=== PATIENT | female | born 1960 | race Caucasian/White ===

== ENCOUNTER 2025-01-07 15:18 | Emergency (ER) | payer OTHER, SELFPAY ==
[2025-01-07 15:25] VITALS: BP 157/95
[2025-01-07 15:41] LABS: % Basophils 0.6 % (0-2); % Eosinophils 1.5 % (0-6); % Immature Granulocytes 0.3 % (0-0.5); % Lymphocytes 21.9 % (20.5-51.1); % Monocytes 6.8 % (1.7-9.3); % Neutrophils 68.9 % (42.2-75.2); Absolute Basophils 0.1 10^3/uL (0-0.2); Absolute Eosinophils 0.1 10^3/uL (0-0.7); Absolute Lymphocytes 1.9 10^3/uL (1.2-3.4); Absolute Monocytes 0.6 10^3/uL (0.1-0.6); Absolute Neutrophils 6.1 10^3/uL (1.4-6.5); Hematocrit 45.7 % (37.0-47.0); Hemoglobin 15.9 g/dL (12.0-16.0); Mean Corp Hgb Conc. 34.8 g/dL (33.0-37.0); Mean Corpuscular Hgb 30.6 pg (27.0-31.0); Mean Corpuscular Volume 88.1 fL (81.0-99.0); Mean Platelet Volume 9.2 fL (7.4-10.4); Nucleated Red Blood Cells % 0 %; Platelet Count 270 10^3/uL (130-400); Red Blood Cell Count 5.19 10^6/uL (4.20-5.40); Red Cell Dist. Width 13.3 % (11.5-14.5); White Blood Cell Count 8.9 10^3/uL (4.8-10.8)
[2025-01-07 15:51] LABS: ALT (SGPT) 19 U/L (0-35); AST (SGOT) 22 U/L (14-36); Albumin 4.8 g/dl (3.5-5.0); Alkaline Phosphatase 75 U/L (38-126); Blood Urea Nitrogen 16 mg/dl (7-17); Carbon Dioxide 24 mmol/L (22-30); Chloride 109 mmol/L (98-107); Glucose 150 mg/dl (70-99); Potassium 4.4 mmol/L (3.5-5.1); Sodium 141 mmol/L (135-145); Total Bilirubin 0.6 mg/dl (0.2-1.3); Total Protein 7.7 g/dl (6.3-8.2); eGFR > 60.00
== END 2025-01-07 19:20 | disposition left against medical advice (07) ==
LOC: EMR 15:18
PROVIDERS: EMERGENCY PHYSICIAN Emergency Medicine
DX: R10.9 Unspecified abdominal pain (principal); R11.0 Nausea; Z87.442 Personal history of urinary calculi; Z53.21 Procedure and treatment not carried out due to patient leaving prior to being seen by health care provider
CPT/HCPCS: 80053; 85025

== ENCOUNTER 2025-01-09 00:24 | Emergency (ER) | payer OTHER, SELFPAY ==
[2025-01-09 00:26] VITALS: BP 133/74
--- NOTE | 2025-01-09 00:57 | ED.GENMED ---
History of Present Illness
General
Chief Complaint: Flank Pain
Source: patient
Time Seen by Provider: 01/09/25 00:38
History of Present Illness
History of Present Illness:
Note:
CHIEF COMPLAINT(S)
Right flank pain.
HISTORY OF PRESENT ILLNESS
The patient is a 64-year-old female with a past medical history significant for brain meningioma and seizures, presenting with right flank pain. The pain began on Monday and has been constant since onset. The patient denies fever, urinary burning,
and currently does not note any nausea but reports a previous episode of vomiting. There is a decrease in urinary output despite sufficient fluid intake. The patient has a history of kidney stones and states that the current pain is reminiscent of
past episodes.
ADDITIONAL HISTORY OBTAINED FROM SOURCES OTHER THAN THE PATIENT
According to the patient, she had surgeries and radiation treatment for a brain meningioma, which was discovered following a seizure during a knee replacement recovery.
PAST MEDICAL HISTORY
- Brain meningioma with two major surgeries and radiation therapy.
- History of seizures.
- Previous kidney stones.
PHYSICAL EXAM
- Heart: Regular rate and rhythm.
- Abdomen: Right CVA tenderness present.
- Extremities: No edema.
- Neurological: Cranial nerves intact, no focal motor deficits.
PLAN
- Initiate IV access and administer fluids.
- Provide narcotic pain medication.
- Order a CT scan to assess for kidney stones.
- Monitor pain response to medication and adjust as necessary.
DIFFERENTIAL DIAGNOSIS
The Differential Diagnosis includes, in no particular order and is not limited to:
- Nephrolithiasis (kidney stones)
- Urinary tract infection
- Pyelonephritis
- Renal colic
- Hydronephrosis
- Musculoskeletal pain
- Abdominal aortic aneurysm
- Gastroenteritis
- Biliary colic
- Appendicitis
CARE-UPDATE
01/09/25 - 02:39
Reassessment indicates significant improvement in pain levels. Continue current pain management strategy unless otherwise directed. Further evaluation needed to determine if additional interventions are necessary.
CARE-UPDATE
01/09/25 - 02:48
Reassessment reveals a 7mm and two 4mm distal ureter stones.
Disposition:
SUMMARY OF ENCOUNTER
The patient presented with right flank pain reminiscent of previous kidney stone episodes. Management in the emergency department included pain control and hydration. A CT scan was performed revealing distal ureter stones. Consideration for
nephrolithiasis was made, given her known history. The patient expressed a preference for outpatient management, and it was deemed reasonable due to controlled pain and stable condition.
DISPOSITION
The patient was discharged with instructions to manage the condition on an outpatient basis.
EMERGENCY TREATMENTS ADMINISTERED
Pain control with unspecified narcotic analgesics and intravenous fluids were administered.
PLAN
Continue pain management, start tamsulosin (Flomax) for stone expulsion, monitor symptom progression, and follow up with outpatient urology.
MEDICATION RECONCILIATION
Administered pain control medication in the ED. Prescribed tamsulosin (Flomax) for outpatient management.
MEDICAL DECISION MAKING
1. Number & Complexity of Problems: Chronic conditions affecting care include brain meningioma, seizures, and previously managed kidney stones. Differential diagnosis considered included nephrolithiasis.
2. Data Reviewed: CT scan confirmed stones. Urinalysis considered contaminated, but a urine culture was pending.
3. Risk: Consideration of admission was made due to the presence of kidney stones, but outpatient management was appropriate given controlled symptoms, stable vitals, and follow-up reliability.
PATHOLOGIES TO CONSIDER
- Nephrolithiasis (kidney stones)
- Urinary tract infection
- Pyelonephritis
- Renal colic
- Hydronephrosis
Past History
Past History
ED Past Medical History: GERD, Hypercholesterolemia and Other (Crohn's)
ED Past Surgical History: Cholecystectomy and Gynecological (Hysterectomy)
Social History
Tobacco: Non-smoker
Alcohol: Occasional
Personal:
Living: with family
Phy Exam
Physical Exam
Physical Exam:
.
Course
Orders/Labs/Results
Orders:
Orders
01/09/25 00:58
CT Abd/pel Without Iv Or Oral Urgent
Comment:
Reason For Exam: R flank pain
01/09/25 01:10
0.9% Sodium Chloride 1000 ml [Nss] 1,000 ml IV BOLUS
HYDROmorphone [Dilaudid] 0.5 mg IV NOW STA
Ondansetron Injectable [Zofran] 4 mg IV NOW STA
01/09/25 01:21
Urinalysis Reflex To Culture Urgent
Date Specimen was Collected: 01/09/25
Time Specimen was Collected: 01:04
Urine Microscopic Reflex Cult Urgent
Urine Culture Urgent
PREMA Source: U
Specimen Description:
Date Specimen was Collected: 01/09/25
Time Specimen was Collected: 01:04
01/09/25 02:13
Ketorolac [Toradol] 15 mg IV NOW STA
01/09/25 02:38
Hydrocodone 5/APAP 325 [[place] 5/325] 2 tablet PO NOW STA
Abnormal Lab Results
01/09/25
01:21
Ur Occult Blood Reflex 4+ A
(Negative)
Leukocyte Esterase Rfl 3+ A
(Negative)
Urine RBC >100 A /HPF
(0-2)
Urine Bacteria (Reflex) Many A
(Negative)
Urine Albumin (Reflex) 3+ A
(Neg - Trace)
Vital Signs
Initial and Last Documented VS:
Initial Vital Signs
Temp Pulse Resp BP Pulse Ox
97.9 F 59 20 133/74 97
01/09/25 00:26 01/09/25 00:26 01/09/25 00:26 01/09/25 00:26 01/09/25 00:26
Last Documented Vital Signs
Temp Pulse Resp BP Pulse Ox
97.9 F 63 16 112/56 95
01/09/25 00:26 01/09/25 02:57 01/09/25 02:57 01/09/25 02:57 01/09/25 02:57
*Pulse Oximetry
SaO2: 97
Oxygen Mode of Delivery: Room air
Patient hypoxic: no
*Critical Care Note
Total Time (30-74mins, 75-104mins- exclusive of procedures): Not Applicable
ED Attending Note
-
Portions of this chart may have been created with voice recognition software.� Occasional wrong word or��sound alike� substitutions may have occurred due to the inherent limitations of voice recognition software.
Discharge Plan
Departure
Patient Disposition: Home (Routine Discharge)
Date of Disposition: 01/09/25
Time of Disposition: 02:42
Patient with high blood pressure during this ER visit?: No
Discharge Problem:
Kidney stone
Instructions: Kidney Stones (DC), How to Strain Your Urine, Narcotic Pain Medication
Prescriptions:
New
hydrocodone-acetaminophen 5-325 mg tablet
2 tab PO Q6H PRN (Reason: Pain) Qty: 14 0RF
tamsulosin [Flomax] 0.4 mg capsule
0.4 mg PO HS Qty: 20 0RF
cefuroxime axetil 500 mg tablet
500 mg PO BID 7 Days Qty: 14 0RF
No Action
atorvastatin 40 MG tablet
40 mg PO QPM
ranitidine HCl 300 MG tablet
300 mg PO HS
alosetron [Lotronex] 1 MG tablet
1 mg PO BID
hyoscyamine sulfate [Levbid] 0.375 MG tablet extended release 12 hr
0.375 mg PO BID
trazodone 100 MG tablet
100 mg PO HS
amitriptyline 10 MG tablet
30 mg PO HS
hyoscyamine sulfate [Levsin] 0.125 MG tablet
0.125 mg PO Q4HPRN PRN (Reason: Chron's flair)
lamotrigine 100 MG tablet
200 mg PO Daily
omeprazole-sodium bicarbonate 1 EACH capsule
1 tab PO BID
fenofibrate 54 MG tablet
67 mg PO DAILY AT 0700
tamsulosin 0.4 MG capsule
0.4 mg PO DAILY Qty: 5 0RF
ondansetron 4 MG tablet,disintegrating
4 mg PO Q8HPRN PRN (Reason: Nausea/Vomiting) Qty: 10 0RF
oxycodone-acetaminophen 5 MG/325 MG tablet
1 tab PO Q4HPRN PRN (Reason: Pain) Qty: 15 0RF
prochlorperazine maleate 10 MG tablet
10 mg PO Q6HPRN PRN (Reason: headache) Qty: 12 0RF
lamotrigine [Lamictal] 150 MG tablet
150 mg PO BID Qty: 60 0RF
Referrals:
Van Lya Jr., MD [Active, Urology]
UNKNOWN - PT DOES,NOT KNOW [Unknown Provider]
Activity Restrictions/Additional Instructions:
Please see urology in the next 3 to 5 days for follow-up and reevaluation. Return immediately for intractable vomiting, fevers, worsening pain or any other concerns.
Interventions
Interventions:
*Risk Screen - Suicide Last Done: 01/09/25 00:26
*General Assessment Last Done: 01/09/25 00:26
*Neglect/Abuse Screening Last Done: 01/09/25 00:26
*ED- Fall Risk Assessment Last Done: 01/09/25 00:26
*ED COVID-19 Vaccine History Last Done: 01/09/25 00:26
SR-Cyiadz-Djhlximefp Assessment Last Done: 01/09/25 01:29
ED-Female Genitourinary Assessment Last Done: 01/09/25 01:29
Discharge Date and Time
Print Language: WELSH
[2025-01-09] MEDS: ZOFRAN 4 MG IV (01:20)
[2025-01-09] MEDS: NSS 1000 IV (01:20)
[2025-01-09] MEDS: DILAUDID 0.5 MG IV (01:21)
[2025-01-09 01:31] LABS: Urine Albumin 3+ (Neg - Trace); Urine Bilirubin Negative (Negative); Urine Character Cloudy (Clear); Urine Glucose Negative (Negative); Urine Ketone Negative (Negative); Urine Leukocyte 3+ (Negative); Urine Nitrite Negative (Negative); Urine Occult Blood 4+ (Negative); Urine Urobilinogen Negative (Neg - 1+)
[2025-01-09 01:32] LABS: Urine Color Amber
[2025-01-09 01:46] LABS: Urine Amorphous Seen; Urine Mucus Many; Urine Squamous Cell >30 /LPF (Few)
[2025-01-09 01:47] LABS: Urine Bacteria Many (Negative); Urine Calcium Oxalate Crystals Seen; Urine Red Blood Cell >100 /HPF (0-2)
[2025-01-09] MEDS: TORADOL 15 MG IV (02:16)
[2025-01-09] MEDS: NORCO 5/325 2 TABLET PO (02:51)
[2025-01-09 02:57] VITALS: BP 112/56
== END 2025-01-09 03:13 | disposition home or self-care (01) ==
LOC: EMR 00:24
PROVIDERS: EMERGENCY PHYSICIAN Emergency Medicine; FAMILY PHYSICIAN Family Medicine
DX: R10.9 Unspecified abdominal pain (principal); E78.00 Pure hypercholesterolemia, unspecified; K50.90 Crohn's disease, unspecified, without complications; Z87.442 Personal history of urinary calculi; Z90.49 Acquired absence of other specified parts of digestive tract; Z90.710 Acquired absence of both cervix and uterus; Z96.659 Presence of unspecified artificial knee joint
CPT/HCPCS: 99284; 96374; 96375; 96361; 74176; 81003; 81015; 87086

== ENCOUNTER 2025-01-11 17:39 | Inpatient (IN) | payer OTHER, SELFPAY ==
[2025-01-11 13:35] VITALS: BP 147/79
--- NOTE | 2025-01-11 15:15 | ED.GENMED ---
History of Present Illness
General
Chief Complaint: Flank Pain
Source: patient
Exam Limitations: none
Time Seen by Provider: 01/11/25 15:10
Nursing documentation reviewed up to this point in time: agreed with
History of Present Illness
History of Present Illness:
64-year-old female hx kidney stones, stents x 2 and lithotripsy, here 2 days ago, with 6 mm obstructing calculus distal right ureter. Here today with unrelenting pain with home Oxycodone and Flomax. Good relief here with Dilaudid, no infection of
urine and labs unremarkable. She is not comfortable going home. She couldn't get Uro appt until 01/16. Denies fever or chills.
Past History
Past History
ED Past Medical History: GERD, Hypercholesterolemia and Other (Crohn's)
ED Past Surgical History: Cholecystectomy and Gynecological (Hysterectomy)
Social History
Tobacco: Non-smoker
Alcohol: Occasional
Personal:
Living: with family
Review of Systems
Review of Systems
Allergies reviewed?: Yes
All Other Systems: ROS reviewed and negative except as documented in HPI and ROS
Constitutional: Denies fever or chills
Respiratory: Denies trouble breathing
Cardiac: Denies chest pain
ABD/GI: Reports nausea and vomiting; Denies abdominal pain
: Reports flank pain (Right); Denies dysuria, frequency or difficulty voiding
Musculoskeletal: Reports no symptoms
Skin: Reports no symptoms
Neurological: Reports no symptoms
Phy Exam
Physical Exam
Physical Exam:
GENERAL: No acute distress. A&Ox3.
CONSTITUTIONAL: Afebrile.
EYES: clear, conjunctivae normal
ENMT: moist mucus membranes, Pharynx nl
RESPIRATORY: Regular respirations, nonlabored, lungs clear.
CARDIOVASCULAR: Regular rate and rhythm, no murmurs, no rubs.
GI: Soft, nontender, normal BS. Mild right flank tenderness to percussion
MUSCULOSKELETAL: Moves with ease. Well perfused.
SKIN: Warm, dry, pink
PSYCH: Normal mood and affect. Well kept, interactive and appropriate
NEUROLOGIC: Awake, alert and oriented. No focal neurological deficits
Course
Orders/Labs/Results
Orders:
Orders
01/11/25 Dinner
Regular
At Your Request: Full Participation
Does patient need a safe tray?: No
01/11/25 15:12
0.9% Sodium Chloride 1000 ml [Nss] 1,000 ml IV BOLUS
HYDROmorphone [Dilaudid] 1 mg IV NOW STA
01/11/25 15:25
Complete Blood Count/With Diff Urgent
Comprehensive Metabolic Panel Urgent
Urinalysis Reflex To Culture Urgent
Date Specimen was Collected: 01/11/25
Time Specimen was Collected: 15:15
Urine Microscopic Reflex Cult Urgent
Urine Culture Urgent
PREMA Source: U
Specimen Description:
Date Specimen was Collected: 01/11/25
Time Specimen was Collected: 15:15
01/11/25 16:37
UROLOGY CONSULT Urgent
Consulting Provider: German Lai
Was physician already notified: Yes
Comment: R ureteral obstructing stone
01/11/25 17:08
Admit/Transfer Patient As Directed
Co-Sign Provider:
Level of Care: Inpatient admission
Assign to:: Medical/Surgical
Physician / Group: Sarahi Miguel
Diagnosis: obstructing calculus of distal right ureter
Reason for Hospitalization: obstructing calculus of distal right ureter
Expected length of stay greater than two midnights?: Yes
ELOS- Estimated Length of Stay in days: 2
I certify the patient meets the requirements for IP care: Yes
PRN Pain Medication Management As Directed
May give lesser potent ordered pain med per pt: Yes
preference::
Protocol:: Medication orders for pain may be administered in a
manner that supports deferring to patient preference
when the pt is:
- Requesting an ordered lesser potent pain medication.
Least to most potent pain medications are defined
as: acetaminophen < NSAID < tramadol < opioids
(morphine, oxycodone, hydromorphone).
- Requesting a lesser dose of the same medication IF
ORDERED.
- Requesting a less intrusive route of administration
if both routes are prescribed by the provider (PO <
IV).
01/11/25 17:09
Code Status As Directed
Resuscitation Status: Do not resuscitate
Reached after discussion with pt or family/Healthcare POA: Yes
Decision communicated with: patient
01/11/25 17:10
DNR Bracelet Application ONCE
01/11/25 17:52
0.9% Sodium Chloride 1000 ml [Nss] 1,000 ml IV 125 mls/hr
Acetaminophen [Tylenol] 650 mg PO Q4HPRN PRN
HYDROmorphone [Dilaudid] 0.5 mg IV Q2HPRN PRN
Ondansetron Injectable [Zofran] 4 mg IV Q6HPRN PRN
Oxycodone/Acetaminophen [Percocet 5/325] 1 tablet PO Q4HPRN PRN
Oxycodone/Acetaminophen [Percocet 5/325] 2 tablet PO Q4HPRN PRN
01/11/25 17:52
Activity As Directed
Activity Level: As Tolerated
Intake/ Output As Directed
Frequency: Per unit guidelines
Okay to Shower As Directed
Pneumatic Compression Sleeves As Directed
Type: Thigh high
Strain Urine As Directed
Vital Signs As Directed
Frequency: Per unit guidelines
Weight As Directed
Frequency: Once
Comment: on admission
DX Deep Vein Thrombosis Video Routine
01/11/25 20:00
Lamotrigine [Lamictal] 150 mg PO BID
01/11/25 22:00
Tamsulosin [Flomax] 0.4 mg PO HS
Trazodone [Desyrel] 100 mg PO HS
01/12/25 Breakfast
NPO
Allow oral meds: Yes
Allow clear liquids: 4hrs prior to procedure
Comment: may have unrestricted clear liquid up to 4 hrs prior to scheduled procedure
Basic Metabolic Panel IN AM
Complete Blood Count/No Diff IN AM
01/12/25 08:00
Multivitamin [Theragran] 1 tablet PO DAILY
Propranolol Extended Release [Inderal LA] 80 mg PO DAILY
Abnormal Lab Results
01/11/25
15:25
MCH 31.2 H pg
(27.0-31.0)
Glucose 107 H mg/dl
(70-99)
Ur Occult Blood Reflex 4+ A
(Negative)
Leukocyte Esterase Rfl 1+ A
(Negative)
Urine RBC >100 A /HPF
(0-2)
Urine WBC (Reflex) 11-15 A /HPF
(0-5)
Urine Bacteria (Reflex) Few A
(Negative)
Urine Albumin (Reflex) 2+ A
(Neg - Trace)
01/11/25 15:25
01/11/25 15:25
Vital Signs
Initial and Last Documented VS:
Initial Vital Signs
Temp Pulse Resp BP Pulse Ox
97.6 F 52 16 147/79 96
01/11/25 13:35 01/11/25 13:35 01/11/25 13:35 01/11/25 13:35 01/11/25 13:35
Last Documented Vital Signs
Temp Pulse Resp BP Pulse Ox
97.8 F 54 16 141/78 98
01/11/25 17:52 01/11/25 17:52 01/11/25 17:52 01/11/25 17:52 01/11/25 17:52
MDM/Problems Addressed
Differential Diagnosis Includes:
UTI, pyelonephritis, infected kidney stone
MDM/Problems Addressed:
64-year-old female hx kidney stones, stents x 2 and lithotripsy, here 2 days ago, with 6 mm obstructing calculus distal right ureter. Here today with unrelenting pain with home Oxycodone and Flomax. Good relief here with Dilaudid, no infection of
urine and labs unremarkable. She is not comfortable going home. She couldn't get Uro appt until 01/16. Denies fever or chills.
2 days ago patient's CAT scan showed obstructing distal right ureteral calculus with maximum dimension of 6 mm. Moderate dilatation of the more proximal right ureter and pelvicalyceal system with right perinephric edema and enlargement of the right
kidney compared to the left. Also an additional 3 mm calculus in the right distal ureter 1.5 cm inferior to the larger more proximal calculus.
4:15 p.m.
CBC normal
CMP normal
U/A: No infection
Good pain relief with Dilaudid
Consulted urology Dr. Lai who agrees patient needs to be admitted, he will take her to the OR in the morning for stent and ureteroscopy.
Hospitalist notified of admission.
*Pulse Oximetry
SaO2: 96
Oxygen Mode of Delivery: Room air
Patient hypoxic: not evaluated
*Critical Care Note
Total Time (30-74mins, 75-104mins- exclusive of procedures): Not Applicable
ED Attending Note
-
Portions of this chart may have been created with voice recognition software.� Occasional wrong word or��sound alike� substitutions may have occurred due to the inherent limitations of voice recognition software.
Discharge Plan
Departure
Patient Disposition: Admit
Date of Disposition: 01/11/25
Time of Disposition: 16:34
Admit to: Med/Surg
Presentation/result/management discussed w/ accepting MD/DO: Hospitalist
Condition: Fair
Discharge Problem:
Calculus of distal right ureter
Interventions
Interventions:
*Risk Screen - Suicide Last Done: 01/11/25 13:35
*General Assessment Last Done: 01/11/25 15:25
*Neglect/Abuse Screening Last Done: 01/11/25 15:25
*ED- Fall Risk Assessment Last Done: 01/11/25 15:25
*ED COVID-19 Vaccine History Last Done: 01/11/25 15:25
*Nursing Disposition Last Done: 01/11/25 17:55
NM-Lmyuoo-Pbgncyugiv Assessment Last Done: 01/11/25 15:25
ED-Female Genitourinary Assessment Last Done: 01/11/25 15:33
Discharge Date and Time
Discharge Date/Time: 01/11/25 17:55
[2025-01-11] MEDS: DILAUDID 1 MG IV (15:29)
[2025-01-11] MEDS: NSS 1000 IV ×2 (15:29→18:14)
[2025-01-11 15:34] LABS: % Basophils 0.8 % (0-2); % Eosinophils 3.3 % (0-6); % Immature Granulocytes 0.3 % (0-0.5); % Lymphocytes 35.6 % (20.5-51.1); % Monocytes 7.4 % (1.7-9.3); % Neutrophils 52.6 % (42.2-75.2); Absolute Basophils 0.1 10^3/uL (0-0.2); Absolute Eosinophils 0.3 10^3/uL (0-0.7); Absolute Lymphocytes 2.7 10^3/uL (1.2-3.4); Absolute Monocytes 0.6 10^3/uL (0.1-0.6); Hematocrit 42.1 % (37.0-47.0); Hemoglobin 14.9 g/dL (12.0-16.0); Mean Corp Hgb Conc. 35.4 g/dL (33.0-37.0); Mean Corpuscular Hgb 31.2 pg (27.0-31.0); Mean Corpuscular Volume 88.3 fL (81.0-99.0); Mean Platelet Volume 9.5 fL (7.4-10.4); Nucleated Red Blood Cells % 0 %; Platelet Count 265 10^3/uL (130-400); Red Blood Cell Count 4.77 10^6/uL (4.20-5.40); Red Cell Dist. Width 13.4 % (11.5-14.5); Urine Albumin 2+ (Neg - Trace); Urine Bilirubin Negative (Negative); Urine Character Cloudy (Clear); Urine Color Yellow; Urine Glucose Negative (Negative); Urine Ketone Negative (Negative); Urine Leukocyte 1+ (Negative); Urine Nitrite Negative (Negative); Urine Occult Blood 4+ (Negative); Urine Urobilinogen Negative (Neg - 1+); White Blood Cell Count 7.7 10^3/uL (4.8-10.8)
[2025-01-11 15:42] LABS: Urine Red Blood Cell >100 /HPF (0-2); Urine Squamous Cell 0-2 /LPF (Few)
[2025-01-11 15:43] LABS: Urine Bacteria Few (Negative); Urine Calcium Oxalate Crystals Present
[2025-01-11 15:50] LABS: ALT (SGPT) 28 U/L (0-35); AST (SGOT) 24 U/L (14-36); Albumin 4.2 g/dl (3.5-5.0); Alkaline Phosphatase 84 U/L (38-126); Blood Urea Nitrogen 16 mg/dl (7-17); Calcium 9.9 mg/dl (8.4-10.2); Carbon Dioxide 24 mmol/L (22-30); Chloride 107 mmol/L (98-107); Glucose 107 mg/dl (70-99); Potassium 3.9 mmol/L (3.5-5.1); Sodium 139 mmol/L (135-145); Total Bilirubin 0.4 mg/dl (0.2-1.3); Total Protein 6.9 g/dl (6.3-8.2); eGFR > 60.00
--- NOTE | 2025-01-11 16:38 | HPS.HSE ---
Family Physician
-
Family Physician: Sha Ching
Chief Complaint
-
right flank and right back pain
History of Present Illness
Patient is a 64-year-old female with past medical history significant for migraine headaches, hypercholesterolemia, seizures, Crohn's disease, Hx kidney stones and Hx meningioma who presented to [facility] ED for evaluation of right flank and right back
pain. Patient reports onset of pain this past Monday01/06/2025 and was seen in ED on 01/09/[address] revealing distal ureter stones. Patient was discharged home from ED with instructions to manage, pain regimen, antibiotics and flomax.
Patient returned to ED today for continued pain and now nausea and vomiting. Patient denies any fevers, chills or urinary symptoms.
Medical History
Past Medical History
Past Medical History: Reports Other
Additional Past Medical History:
migraine headaches
hypercholesterolemia
seizures
Crohn's disease
Hx meningioma
Hx kidney stones
Past Surgical History: Reports Other
Additional Past Surgical History:
hysterectomy
cholecystectomy
R knee replacement
Kidney stents x4
lithotripsy
L knee replacement
Colonoscopy 10/2015
Social History
Tobacco: Non-smoker
Alcohol: None
Drug: None
Employment: Retired
Family History
Family History: Not pertinent
Allergies / Home Medications
Allergies reflects when Allergies were last updated in [employer].
Home Medications with original date entered in [employer]
Allergy/Medication List:
Allergies
Allergy/AdvReac Type Severity Reaction Status Date / Time
vaccine adjuvant system, Allergy Rash Verified 01/09/25 00:26
AS01B liposomal (From
Shingrix (PF))
varicella-zoster virus Allergy Rash Verified 01/09/25 00:26
glycoprotein E, recombinant
(From Shingrix (PF))
Home Medications
trazodone 100 mg tablet 100 mg PO HS 05/27/19
lamotrigine 150 mg tablet (Lamictal) 150 mg PO BID #60 tabs 05/12/21
cefuroxime axetil 500 mg tablet 500 mg PO BID 7 days #14 tabs 01/09/25
tamsulosin 0.4 mg capsule (Flomax) 0.4 mg PO HS #20 caps 01/09/25
hydrocodone 5 mg-acetaminophen 325 mg tablet 2 tab PO Q6HPRN PRN severe Pain 01/11/25
ondansetron HCl 8 mg tablet 8 mg PO [id number] PRN nausea 01/11/25
oxycodone-acetaminophen 5 mg-325 mg tablet 1 tab PO TIDPRN PRN severe pains 01/11/25
propranolol 80 mg capsule,24 hr,extended release 80 mg PO DAILY 01/11/25
therapeutic multivitamin 1 tab PO DAILY 01/11/25
Review of Systems
-
History Source: Patient
Abdomen/GI: Reports Abdominal Pain, Nausea and Vomiting
: Reports Flank Pain and Dark Urine
Physical Exam
Vital Signs
Vital Signs
Temp Pulse Resp BP Pulse Ox
97.6 F 52 16 147/79 96
01/11/25 13:35 01/11/25 13:35 01/11/25 13:35 01/11/25 13:35 01/11/25 15:32
Physical Exam
General: Well Developed, Well Nourished and Conversant
HEENT: NormoCephalic, Moist mucous membranes, Atraumatic, Nose Appears Normal and Ears Appear Normal
Respiratory: Clear
Cardiac: S1/S2 and Regular Rhythm
GI: Soft, Non Tender, Non Distended and Normal Bowel Sounds
Genito-urinary: Deferred by me
Musculoskeletal: No Clubbing, No Cyanosis and No Edema
Skin: IV/Catheter Site
Neuro: Awake, Alert, AO x 3 and Nonfocal/grossly intact
Psych: Calm and Intact Judgment/Insight
Laboratory Results
-
01/11/25 15:25
01/11/25 15:25
Laboratory Results
Total Bilirubin 0.4 mg/dl (0.2-1.3) 01/11/25 15:25
AST 24 U/L (14-36) 01/11/25 15:25
ALT 28 U/L (0-35) 01/11/25 15:25
Alkaline Phosphatase 84 U/L (38-126) 01/11/25 15:25
Data Reviewed
-
CT Scan: Report Reviewed by me (Abd/Pel (01/09/2025): Obstructing distal right ureteral calculus with maximum dimension of 6 mm. Moderate dilation of the more proximal right ureter and pelvicalyceal system with right perinephric edema and
enlargement of the right kidney compared to the left. There also appears to be an additional)
Lab Data: Labs Reviewed by me
Impression/Plan
-
IMPRESSION/PLAN:
#Obstructing distal right ureteral calculus
#Hx kidney stones
Abd/Pel CT (01/09/2025): Obstructing distal right ureteral calculus with maximum dimension of 6 mm. Moderate dilation of the more proximal right ureter and pelvicalyceal system with right perinephric
edema and enlargement of the right kidney compared to the left.
There also appears to be an additional 3 mm calculus within the distal right ureter, 1.5 cm inferior to the larger more proximal calculus.
Bilateral nephroliths.
Status post cholecystectomy with no evidence for biliary ductal dilation. Mild fatty infiltration of the liver.
Bony degenerative changes as described.
- Admit to med/surg
- Consult Urology
- IVF NSS 125cc/hr
- continue Flomax
- pain regimen
- supportive care
- strain urine
#seizures
- continue lamotrigine
#migraine headaches
- continue propranolol
#Hx meningioma
s/p radiation and resection x2
#Crohn's disease
#hypercholesterolemia
Code status: DNR
DVT prophylaxis: SCDs
--- NOTE | 2025-01-11 17:27 | W.PN.UPDATE ---
Update Note
Progress Note Update
This is an addendum to the H&P written by Radha Cedeño on 01/11/2025. �Patient seen and examined independently with MEDICAL RECORD RETRIEVAL SPECIALIST.
64-year-old female past medical history of Crohn's disease, migraines, seizures, hypercholesteremia, kidney stones, meningioma status post brain surgery, presenting with persistent right flank pain for the past 2 days. �She was here 2 days ago and
found to have 6 mm distal right ureteral calculus with dilation of right ureter, right perinephric edema enlargement of the right kidney. �Also another 3 mm calculus within the distal right ureter.
IV fluids. �Strain urine. �Pain control. �Continue Flomax. Stop cefuroxime.�Urology consulted. �N.p.o. past midnight for OR tomorrow.
[2025-01-11 17:52] VITALS: BP 141/78; BMI 27.7
[2025-01-11] MEDS: DILAUDID 0.5 MG IV (18:14)
[2025-01-11] MEDS: LAMICTAL 150 MG PO (19:47)
[2025-01-11] MEDS: FLOMAX 0.4 MG PO (21:26)
[2025-01-11] MEDS: DESYREL 100 MG PO (21:26)
[2025-01-11] MEDS: PERCOCET 5/325 2 TABLET PO (21:36)
[2025-01-11] MEDS: PROTONIX 40 MG PO (21:51)
[2025-01-11 23:05] VITALS: BP 124/68
[2025-01-12] VITALS (7 sets, daily range): BP systolic 93–157; BP diastolic 41–75; BMI 28.1
[2025-01-12] MEDS: NSS 1000 IV (02:25)
[2025-01-12] MEDS: PERCOCET 5/325 2 TABLET PO (05:32)
[2025-01-12 06:37] LABS: Hematocrit 38.9 % (37.0-47.0); Hemoglobin 13.2 g/dL (12.0-16.0); Mean Corp Hgb Conc. 33.9 g/dL (33.0-37.0); Mean Corpuscular Hgb 30.8 pg (27.0-31.0); Mean Corpuscular Volume 90.9 fL (81.0-99.0); Mean Platelet Volume 9.5 fL (7.4-10.4); Platelet Count 246 10^3/uL (130-400); Red Blood Cell Count 4.28 10^6/uL (4.20-5.40); Red Cell Dist. Width 13.6 % (11.5-14.5); White Blood Cell Count 6.3 10^3/uL (4.8-10.8)
[2025-01-12 06:46] LABS: Blood Urea Nitrogen 12 mg/dl (7-17); Calcium 9.1 mg/dl (8.4-10.2); Carbon Dioxide 24 mmol/L (22-30); Chloride 112 mmol/L (98-107); Estimated Creatinine Clearance 68 ml/min; Glucose 97 mg/dl (70-99); Sodium 141 mmol/L (135-145); eGFR > 60.00
--- NOTE | 2025-01-12 08:10 | W.SUR.PREOP ---
Pre-Operative Surgical Note
-
I have examined this patient prior to the performance of the scheduled procedure.
The patient's condition is unchanged from the time of the current History and
Physical and the patient is able to undergo the scheduled procedure.
To OR for right ULS.
IV Ancef 2g bone drier operator to OR.
--- NOTE | 2025-01-12 08:31 | W.PN.HOSP.TC ---
Today's Communication/Plan
-
Discharge planning today
Assessment / Plan
Assessment / Plan
Physical exam:
General: Well Developed, Well Nourished and No Apparent Distress
HEENT: Normocephalic, Atraumatic and Moist Mucous Membranes
Respiratory: Clear to Auscultation; Negative Wheezes, Rales or Rhonchi
Cardiac: Regular Rhythm and S1/S2
GI: Soft, Nontender and Nondistended
Musculoskeletal: No Clubbing, No Cyanosis and No Edema
Neuro: Awake, Alert and Oriented
Psych: Calm
A/P:
#Obstructing distal right ureteral calculus
#Hx kidney stones
Abd/Pel CT (01/09/2025): Obstructing distal right ureteral calculus with maximum dimension of 6 mm. Moderate dilation of the more proximal right ureter and pelvicalyceal system with right perinephric
edema and enlargement of the right kidney compared to the left.
There also appears to be an additional 3 mm calculus within the distal right ureter, 1.5 cm inferior to the larger more proximal calculus.
Bilateral nephroliths.
Status post cholecystectomy with no evidence for biliary ductal dilation. Mild fatty infiltration of the liver.
Bony degenerative changes as described.
- Admit to med/surg
- Consult Urology and they took her to the OR for stone removal and stent
- IVF NSS 125cc/hr
- continue Flomax
- pain regimen
- supportive care
- strain urine
#seizures
- continue lamotrigine
#migraine headaches
- continue propranolol
#Hx meningioma
s/p radiation and resection x2
#Crohn's disease
#hypercholesterolemia
Code status: DNR
DVT prophylaxis: SCDs
Anticipated Discharge: Today
Subjective/Interval History
-
Date of Service: January 12, 2025
Seen postprocedure. Does not voice any new complaints. Afebrile
Objective Data
-
Labs:
Laboratory Results
01/12/25
06:06
WBC 6.3
Hgb 13.2
Hct 38.9
Plt Count 246
Sodium 141
Potassium 4.0
Chloride 112 H
Carbon Dioxide 24
BUN 12
Creatinine 0.7
Glucose 97
Calcium 9.1
Vital Signs:
Vital Signs
Temp Pulse Resp BP Pulse Ox
97.7 F 52 18 146/73 95
01/12/25 07:02 01/12/25 07:02 01/12/25 07:02 01/12/25 07:02 01/12/25 07:02
I&O
01/11/25 01/12/25 01/13/25
06:59 06:59 06:59
Intake Total 2049
Output Total 400 / 400
Balance 1649
--- NOTE | 2025-01-12 08:46 | W.IMMPOSTOP ---
Surgical Immed Post Op Note
-
Primary Surgeon: Ming
Pre-op Diagnosis: Obstructing distal right ureteral stones x2
Post-op Diagnosis: Same
Procedure Performed: right ureteroscopy/stone extraction/RGP/stent placement
Anesthesia Type: LMA
Specimen / Cultures: soft stone matrix not recoverable for stone analysis
Estimated Blood Loss: Negligible
Drains: 4.7Fr x 22 cm JJ right ureteral stent
Complications: None
Operative Findings: Moderate ureteral inflammatory changes in distal right ureter indicative of stone impaction - small stone (2 mm) in size irrigated out of distal right ureter.
Retrograde pyelogram w/ moderate right hydronephrosis and tortuous proximal right ureter - stent in appropriate position on final KUB and cystoscopy.
[2025-01-12] MEDS: Pyridium 200 MG PO (09:14)
[2025-01-12] MEDS: DETROL LA 4 MG PO (09:14)
[2025-01-12] MEDS: THERAGRAN 1 TABLET PO (09:53)
[2025-01-12] MEDS: LAMICTAL 150 MG PO (09:54)
[2025-01-12] MEDS: INDERAL LA 80 MG PO (10:01)
--- NOTE | 2025-01-12 10:21 | W.DCSUMMARY ---
Addendum entered and electronically signed by Abimael Morrison MD 01/15/25 12:44:
Unfortunately urine cultures came back positive with ESBL E. coli. I reached out to patient and instructed to come to the ER for admission to the hospital since she will need intravenous antibiotics and ID and urology reevaluation. She is still
having some hematuria as well.
Original Note:
Discharge Summary
Discharge Data
Date of Admission: 01/11/25
Date of Discharge: 01/12/25
-
Pending Results: No
Hospital Course
Patient is 64 years old female with history of migraines, Crohn's disease, meningioma, seizures, presented to the hospital with right flank pain and found to have obstructive kidney stone. She was given IV fluids, pain control, and urology
consulted. She was taken to the OR and she had stone extraction and stent placed. She did well postop. Urology cleared her for discharge today. She is to continue her outpatient antibiotics and pain medications. No other events were noticed.
She is going to be discharged in stable condition today.
Discharge Plan
-
Patient Disposition: Home (Routine Discharge)
Discharge Diagnosis/Procedures: Kidney stone status post right ureteroscopic stone extraction and stent placement.
Diet: Regular
Activity: No restrictions
Driving Restrictions: No driving for 24 hours
Bathing Restrictions: None
Blood Work: Please PCP to order CBC, BMP within 1 week
Referrals:
German Lai MD [Active, Urology]
Referral Note: Please call [phone] on Saturday 01/13 to schedule a stent removal (office procedure taking approximately 30 seconds with local anesthetic) with Dr. Lai in 1-2 weeks.
Sha Ching MD [Family Provider, Family Practice]
Prescriptions:
Continued
trazodone 100 MG tablet
100 mg PO HS
lamotrigine [Lamictal] 150 MG tablet
150 mg PO BID Qty: 60 0RF
tamsulosin [Flomax] 0.4 mg capsule
0.4 mg PO HS Qty: 20 0RF
Rx Instructions:
for 20 days starting 01/09/25
cefuroxime axetil 500 mg tablet
500 mg PO BID 7 Days Qty: 14 0RF
Rx Instructions:
for 7 days starting 01/09/25
hydrocodone-acetaminophen 5-325 mg tablet
2 tab PO Q6HPRN PRN (Reason: severe Pain)
ondansetron HCl 8 mg Tablet
8 mg PO [id number] PRN (Reason: nausea)
therapeutic multivitamin Tablet
1 tab PO DAILY
oxycodone-acetaminophen 5-325 mg tablet
1 tab PO TIDPRN PRN (Reason: severe pains)
propranolol 80 mg Capsule,Extended Release 24 Hr
80 mg PO DAILY
Discharge Orders:
Discharge Patient (As Directed); Ordered 01/12/25
Ordered By: Abimael Morrison
Discharge Date and Time
Print Language: SYRIAC
--- NOTE | 2025-01-12 12:58 | CM ---
Cm met with pt bedside and noted dc order
Pt resides with her spouse and adult son in [place]
She is indep and has DME from prior brain surgeries, no longer driving due to brain surgeries
No dc needs noted
Discharge Disposition- home, no needs, family transport
== END 2025-01-12 14:31 | disposition home or self-care (01) | DRG 660 ==
LOC: 2 NORTH 17:39
PROVIDERS: Emergency Medicine; Nurse Practitioner Family; Registered Nurse; Surgery; ADMITTING PHYSICIAN Hospitalist; ATTENDING PHYSICIAN Hospitalist; EMERGENCY PHYSICIAN Emergency Medicine; FAMILY PHYSICIAN Family Medicine
PROC: BT1D1ZZ Fluoroscopy of Right Kidney, Ureter and Bladder using Low Osmolar Contrast (ICD-10-PCS; 2025-01-11)
PROC: 0T768DZ Dilation of Right Ureter with Intraluminal Device, Via Natural or Artificial Opening Endoscopic (ICD-10-PCS; 2025-01-11)
PROC: 0TC68ZZ Extirpation of Matter from Right Ureter, Via Natural or Artificial Opening Endoscopic (ICD-10-PCS; 2025-01-11)
DX: N13.2 Hydronephrosis with renal and ureteral calculous obstruction (principal); K50.90 Crohn's disease, unspecified, without complications; K76.0 Fatty (change of) liver, not elsewhere classified; R56.9 Unspecified convulsions; G43.909 Migraine, unspecified, not intractable, without status migrainosus; E78.00 Pure hypercholesterolemia, unspecified; Z66 Do not resuscitate; Z79.899 Other long term (current) drug therapy; Z86.011 Personal history of benign neoplasm of the brain; Z87.442 Personal history of urinary calculi; Z90.49 Acquired absence of other specified parts of digestive tract; Z92.3 Personal history of irradiation
CPT/HCPCS: 74420; 80048; 80053; 81003; 81015; 85025; 85027; 87071; 87086; 87186; 96361; 96374; 99284; A4300; C1894; C2617

== ENCOUNTER 2025-01-15 15:13 | Inpatient (IN) | payer OTHER, SELFPAY ==
[2025-01-15 13:00] VITALS: BMI 27.9
[2025-01-15 13:02] VITALS: BP 161/79
[2025-01-15 13:12] VITALS: BP 164/80
[2025-01-15] MEDS: ZOSYN 100 IV (13:54)
--- NOTE | 2025-01-15 14:00 | ED.GENMED ---
History of Present Illness
General
Chief Complaint: Abnormal Lab Value
Time Seen by Provider: 01/15/25 13:23
History of Present Illness
History of Present Illness:
Patient is a 65-year-old woman with recent admission for an obstructive kidney stone requiring stone extraction and stent. She was discharged 3 days ago on cefuroxime. She received a call today stating that her urine culture came back for ESBL E.
coli with multidrug resistance. Patient has been having ongoing suprapubic pressure frequency dysuria and some hematuria. No back pain. No nausea vomiting. No fevers.
Past History
Past History
ED Past Medical History: GERD, Hypercholesterolemia and Other (Crohn's)
ED Past Surgical History: Cholecystectomy and Gynecological (Hysterectomy)
Social History
Tobacco: Non-smoker
Alcohol: Occasional
Personal:
Living: with family
Phy Exam
Physical Exam
Physical Exam:
GENERAL: in no acute distress
HEENT: normocephalic, extraocular movements intact, moist oral mucosa
NECK: normal inspection
RESPIRATORY: no respiratory distress, clear to auscultation bilaterally
CARDIOVASCULAR: regular rate and rhythm
ABDOMEN/: soft, non-distended, non-tender to palpation, no rebound or guarding
EXTREMITIES: non-tender, no edema/swelling
NEUROLOGIC: awake and alert, moves all extremities
SKIN: warm
Course
Orders/Labs/Results
Orders:
Orders
01/15/25 13:31
Piperacillin/Tazo 4.5 Gram [Zosyn] 4.5 gram in 100 ml IV NOW
01/15/25 13:51
Basic Metabolic Panel Urgent
Complete Blood Count/With Diff Urgent
Urinalysis Reflex To Culture Urgent
Date Specimen was Collected: 01/15/25
Time Specimen was Collected: 13:42
Urine Microscopic Reflex Cult Urgent
Urine Culture Urgent
PREMA Source: U
Specimen Description:
Date Specimen was Collected: 01/15/25
Time Specimen was Collected: 13:42
Abnormal Lab Results
01/15/25
13:51
Absolute Monos (auto) 0.7 H 10^3/uL
(0.1-0.6)
BUN 18 H mg/dl
(7-17)
Glucose 120 H mg/dl
(70-99)
Calcium 10.7 H mg/dl
(8.4-10.2)
Ur Occult Blood Reflex 4+ A
(Negative)
Leukocyte Esterase Rfl 2+ A
(Negative)
Urine Albumin (Reflex) 4+ A
(Neg - Trace)
01/15/25 13:51
01/15/25 13:51
Vital Signs
Initial and Last Documented VS:
Initial Vital Signs
Temp Pulse Resp BP Pulse Ox
97.8 F 62 16 161/79 98
01/15/25 13:02 01/15/25 13:02 01/15/25 13:02 01/15/25 13:02 01/15/25 13:02
Last Documented Vital Signs
Temp Pulse Resp BP Pulse Ox
97.9 F 62 16 164/80 96
01/15/25 13:13 01/15/25 13:02 01/15/25 13:13 01/15/25 13:12 01/15/25 14:01
MDM/Problems Addressed
Differential Diagnosis Includes:
Patient is a 65-year-old woman who was admitted for obstructive kidney stone requiring extraction and stent placement presenting back to the emergency department given the growth of her urine culture showing ESBL E. coli that is multidrug-resistant.
On arrival patient is afebrile. She is overall well-appearing. I did review patient's sensitivities. It is sensitive to Zosyn. Will initiate Zosyn. Will check blood work and urinalysis. Discussed with hospitalist accepted patient to their
service
*Pulse Oximetry
SaO2: 96
Oxygen Mode of Delivery: Room air
Patient hypoxic: no
*Critical Care Note
Total Time (30-74mins, 75-104mins- exclusive of procedures): Not Applicable
ED Attending Note
-
Portions of this chart may have been created with voice recognition software.� Occasional wrong word or��sound alike� substitutions may have occurred due to the inherent limitations of voice recognition software.
Discharge Plan
Departure
Patient Disposition: Admit
Date of Disposition: 01/15/25
Time of Disposition: 14:37
Presentation/result/management discussed w/ accepting MD/DO: Hospitalist
Discharge Problem:
Infection due to ESBL-producing Escherichia coli
Prescriptions:
No Action
trazodone 100 MG tablet
100 mg PO HS
lamotrigine [Lamictal] 150 MG tablet
150 mg PO BID Qty: 60 0RF
tamsulosin [Flomax] 0.4 mg capsule
0.4 mg PO HS Qty: 20 0RF
Patient Comments:
01/15/2025, filled on 01/09/2025 for 20-day supply.
cefuroxime axetil 500 mg tablet
500 mg PO BID 7 Days Qty: 14 0RF
Patient Comments:
01/15/2025, filled on 01/09/2025 and instructed to take 1 tablet BID for 7 days; last dose is to be taken tomorrow (01/16/2025) per pt.
ondansetron HCl 8 mg Tablet
8 mg PO Q8HPRN PRN (Reason: nausea)
therapeutic multivitamin Tablet
1 tab PO DAILY
oxycodone-acetaminophen 5-325 mg tablet
1 tab PO Q8HPRN PRN (Reason: severe pains)
propranolol 80 mg Capsule,Extended Release 24 Hr
80 mg PO DAILY
esomeprazole magnesium 40 mg Capsule,Delayed Release(Dr/Ec)
40 mg PO DAILY
Patient Comments:
01/15/2025, per pt., doctor told her to hold this med. while on Cefuroxime axetil.
Referrals:
Sha Ching MD [Family Provider, Family Practice]
Interventions
Interventions:
*Risk Screen - Suicide Last Done: 01/15/25 13:02
*General Assessment Last Done: 01/15/25 13:14
*Neglect/Abuse Screening Last Done: 01/15/25 13:02
*ED- Fall Risk Assessment Last Done: 01/15/25 13:14
*ED COVID-19 Vaccine History Last Done: 01/15/25 13:14
Discharge Date and Time
Print Language: SLOVAK
[2025-01-15 14:11] LABS: Hematocrit 43.2 % (37.0-47.0); Hemoglobin 14.8 g/dL (12.0-16.0); Mean Corp Hgb Conc. 34.3 g/dL (33.0-37.0); Mean Corpuscular Volume 89.4 fL (81.0-99.0); Nucleated Red Blood Cells % 0 %; Platelet Count 266 10^3/uL (130-400); Red Cell Dist. Width 13.9 % (11.5-14.5)
[2025-01-15 14:12] LABS: Urine Character Bloody (Clear)
[2025-01-15 14:28] LABS: Blood Urea Nitrogen 18 mg/dl (7-17); Calcium 10.7 mg/dl (8.4-10.2); Carbon Dioxide 26 mmol/L (22-30); Chloride 107 mmol/L (98-107); Estimated Creatinine Clearance 58 ml/min; Glucose 120 mg/dl (70-99); Sodium 139 mmol/L (135-145); eGFR > 60.00
[2025-01-15 14:47] LABS: Urine Red Blood Cell >100 /HPF (0-2)
--- NOTE | 2025-01-15 14:48 | HPS.HSE ---
Family Physician
-
Family Physician: Sha Ching
Chief Complaint
-
dysuria, hematuria
History of Present Illness
65-year-old woman with recent admission for an obstructive kidney stone requiring stone extraction and stent, migraine headache, hyperlipidemia, seizures, meningioma presented to us with persistent pelvic pressure, burning with urination hematuria
with some clots with urine .she was discharged 3 days ago on cefuroxime. During that admission patient underwent stone extraction and stent placement. she received a call today stating that her urine culture came back for ESBL E. coli with
multidrug resistance. Patient denied any fever, chills, chest pain or short of breath. Patient denied any abdominal pain, nausea, vomiting or diarrhea. Patient has chronic headache and dizziness at times.
Patient received a dose of Zosyn in ER. Admitted for further management
Medical History
Past Medical History
Past Medical History: Reports Other
Additional Past Medical History:
Migraine headaches
Hyperlipidemia
Seizures
Meningioma
Past Surgical History: Reports Other
Additional Past Surgical History:
Hysterectomy
Cholecystectomy
Right knee replacement
Kidney stents x 4
Lithotripsy
Left knee replacement
Social History
Tobacco: Non-smoker
Alcohol: None
Drug: None
Personal:
Living: With Family
Family History
Family History: Not pertinent
Allergies / Home Medications
Allergies reflects when Allergies were last updated in [facility].
Home Medications with original date entered in [facility]
Allergy/Medication List:
Allergies
Allergy/AdvReac Type Severity Reaction Status Date / Time
vaccine adjuvant system, Allergy Rash Verified 01/15/25 13:04
AS01B liposomal (From
Shingrix (PF))
varicella-zoster virus Allergy Rash Verified 01/15/25 13:04
glycoprotein E, recombinant
(From Shingrix (PF))
Home Medications
trazodone 100 mg tablet 100 mg PO HS Sleep 05/27/19
lamotrigine 150 mg tablet (Lamictal) 150 mg PO BID #60 tabs 05/12/21
cefuroxime axetil 500 mg tablet 500 mg PO BID 7 days #14 tabs 01/09/25
tamsulosin 0.4 mg capsule (Flomax) 0.4 mg PO HS #20 caps 01/09/25
ondansetron HCl 8 mg tablet 8 mg PO Q8HPRN PRN nausea 01/11/25
oxycodone-acetaminophen 5 mg-325 mg tablet 1 tab PO Q8HPRN PRN severe pains 01/11/25
propranolol 80 mg capsule,24 hr,extended release 80 mg PO DAILY Blood Pressure 01/11/25
therapeutic multivitamin 1 tab PO DAILY Supplement 01/11/25
esomeprazole magnesium 40 mg capsule,delayed release 40 mg PO DAILY 01/15/25
Review of Systems
-
Constitutional: Reports No Symptoms
EENT: Reports No Symptoms
Respiratory: Reports No Symptoms
Cardiac: Reports No Symptoms
Abdomen/GI: Reports No Symptoms
: Reports Dysuria and Bleeding
Musculoskeletal: Reports No Symptoms
Skin: Reports No Symptoms
Neurological: Reports No Symptoms
Endocrine: Reports No Symptoms
Hematologic/Lymphatic: Reports No Symptoms
Psych: Reports No Symptoms
Physical Exam
Vital Signs
Vital Signs
Temp Pulse Resp BP Pulse Ox
97.9 F 62 16 164/80 96
01/15/25 13:13 01/15/25 13:02 01/15/25 13:13 01/15/25 13:12 01/15/25 14:01
Physical Exam
General: Well Developed, Well Nourished and No Apparent Distress
HEENT: NormoCephalic, Moist mucous membranes and Atraumatic
Respiratory: Clear
Cardiac: S1/S2 and Regular Rhythm; No Murmur or Rub
GI: Soft, Non Tender, Non Distended and Normal Bowel Sounds; No Organomegaly
Rectal: Deferred by Provider
Musculoskeletal: No Clubbing, No Cyanosis and No Edema
Skin: No Rash
Neuro: AO x 3 and Nonfocal/grossly intact
Psych: Calm
Laboratory Results
-
01/15/25 13:51
01/15/25 13:51
Data Reviewed
-
Lab Data: Labs Reviewed by me
Impression/Plan
-
# ESBL E. coli
# Recent kidney stone extraction/stent
- IV Zosyn continued
- Flomax continued
#seizures
- continue lamotrigine
- Trazodone for sleep
#migraine headaches
- continue propranolol
#Hx meningioma
s/p radiation and resection x2
# GERD
# Chron's disease
- PPI continue
Code status: DNR
DVT prophylaxis: SCDs
[2025-01-15 16:00] VITALS: BP 163/85; BMI 27.7
--- NOTE | 2025-01-15 16:01 | W.PN.UPDATE ---
Update Note
Progress Note Update
This is an addendum to H&P written by Kateryna Gil on 01/15/2025. �Patient seen and examined independently with EQUIPMENT WORKER.
65-year-old female past medical history of migraine headaches, hypercholesterolemia, seizures, Crohn's disease, Hx kidney stones and Hx meningioma recently admitted for right flank pain with obstructive kidney stone. �She had stone extraction and
stent placed on the right. �She was discharged on cefuroxime.
Called back in due to urine culture growing ESBL E. coli resistant to cephalosporins.
Continues to have suprapubic discomfort, burning with urination and blood in the urine.
Urinalysis shows blood.
Zosyn started.
[2025-01-15] MEDS: ZOSYN 50 IV (19:53)
[2025-01-15] MEDS: LAMICTAL 150 MG PO (19:55)
[2025-01-15] MEDS: PERCOCET 5/325 1 TABLET PO (20:01)
[2025-01-15] MEDS: DESYREL 100 MG PO (21:17)
[2025-01-15] MEDS: FLOMAX 0.4 MG PO (21:17)
[2025-01-15 23:11] VITALS: BP 123/61
[2025-01-16] MEDS: PROTONIX 40 MG PO ×2 (01:00→08:36)
[2025-01-16] MEDS: TUMS CHEWABLE TABLET 400 MG PO (01:00)
[2025-01-16] MEDS: ZOSYN 50 IV ×2 (01:58→08:37)
[2025-01-16] MEDS: PERCOCET 5/325 2 TABLET PO (04:08)
[2025-01-16 07:40] VITALS: BP 148/80
[2025-01-16] MEDS: LAMICTAL 150 MG PO ×2 (08:36→20:42)
[2025-01-16] MEDS: INDERAL LA 80 MG PO (08:36)
--- NOTE | 2025-01-16 10:22 | CM ---
Addendum entered by Daniela Kelly 01/16/25 16:51:
Per physician patient will need IV ABX at discharge will wait for prescription from ID physician and proceed with infusion, will need to check benefit for home infusion.
Addendum entered by Daniela Kelly 01/16/25 10:30:
PCP: Dr. Ching
Pharmacy: [facility] in [facility]
Original Note:
manager water reviewed patient's chart and met with patient and spouse at bedside. Patient lives with her spouse and adult son in a one story home, with one step to enter, patient is independent with adl's and ambulation, no dme, home with spouse
when stable no needs.
Plan; Home when stable, no needs.
[2025-01-16] MEDS: PERCOCET 5/325 1 TABLET PO ×2 (11:13→20:46)
--- NOTE | 2025-01-16 11:53 | W.PN.HOSP.TC ---
Today's Communication/Plan
-
IV antibiotics. ID and urology consult.
Assessment / Plan
Assessment / Plan
Physical exam:
General: Acutely ill
HEENT: Normocephalic, Atraumatic and Moist Mucous Membranes
Respiratory: Clear to Auscultation; Negative Wheezes, Rales or Rhonchi
Cardiac: Regular Rhythm and S1/S2
GI: Soft, mild suprapubic tender and Nondistended
Musculoskeletal: No Clubbing, No Cyanosis and No Edema
Neuro: Awake, Alert and Oriented, no neurological deficits
Psych: Calm
A/P:
ESBL UTI:
I know her from last admission and I called her and instructed her to come back to the hospital
Continue IV antibiotics
ID consult
Discussed with family at bedside
Recent ureteral stent for ureteral stone:
Urology consulted-discussed with urology today
Plan for stent removal due to current infection over the next 48 hours
Hematuria:
Likely related to current infection
Continue to monitor and quantify of hematuria and monitor hemoglobin closely
History of seizures:
Continue lamotrigine 150 mg twice a day
History of migraine headaches:
Continue propranolol 80 mg daily for prevention
History of angioma:
History of resection and radiation
DVT prophylaxis:
SCDs
CODE STATUS:
DNR
Total time spent on today's encounter was 52 minutes which included time spent in counseling the patient/family regarding diagnosis and treatment plan as listed above, goals of care, and symptom management. Case was discussed with nursing staff,
specialists, and care coordinators/case management. All labs and imaging personally reviewed by me. Remainder the time spent in detailed review of previous records, lab data, imaging, and other medical provider documentation.
Anticipated Discharge: > 48 hours
Subjective/Interval History
-
Date of Service: January 16, 2025
Patient still having some suprapubic tenderness, she is having hematuria. Afebrile today
Objective Data
-
Vital Signs:
Vital Signs
Temp Pulse Resp BP Pulse Ox
97.4 F 52 16 148/80 98
01/16/25 07:40 01/16/25 07:40 01/16/25 07:40 01/16/25 07:40 01/16/25 08:00
I&O
01/15/25 01/16/25 01/17/25
06:59 06:59 06:59
Intake Total 580 / 580
Output Total 250 / 250
Balance 330 / 330
[2025-01-16] MEDS: ZOSYN 100 IV (13:26)
--- NOTE | 2025-01-16 14:59 | W.PN.URO.CBU ---
Today's Communication / Plan
-
TO OP ROM SAT AM STENT REMOVAL UNLES UNSATBLE MONDAY OR TODAY
Assessment / Plan
-
ESBL ITI IN PT WITH JJ STENT WILL TX ESBL THEN STENT IS READY FOR REMOVAL HAVING SPOKEN TO THE PREV ATTENDING UROLOGUST BWILL REMOVE STENT SAT SOONER IF UNSTABLE
Diagnosis
-
Date of Service: January 16, 2025
-
Patient Diagnosis:
UTI ESBL IN PT WTH LEFT JJ STNE X WEEK PLACED POST OP LASER STONE EXTRACTION
Post Op Day:
Subjective
-
NO FEVER CHILLS SOME PRESSURE HEMATURIA
Objective
-
Vital Signs
Temp Pulse Resp BP Pulse Ox
97.4 F 52 16 148/80 98
01/16/25 07:40 01/16/25 07:40 01/16/25 07:40 01/16/25 07:40 01/16/25 08:00
Intake and Output
01/15/25 01/16/25 01/17/25
06:59 06:59 06:59
Intake Total 580 / 580
Output Total 250 / 250
Balance 330 / 330
Intake:
Oral fluids 480 / 480
IV piggybacks 100 / 100
zosyn 100 / 100
Output:
Urine, Voided 250 / 250
Other:
Number of approximated MODERATE 8
amounts of urine
Laboratory Results
01/15/25 13:51
01/15/25 13:51
Review of Systems
-
: Frequency and Bleeding
Physical Exam
-
General - well developed, well nourished, no acute distress NON TOXIC
Chest - clear bilaterally
Abdomen - soft, non-tender, positive bowel sounds, no CVAT, no incisional pain or distention
Genitalia - normal
Rectal - normal
Skin - warm & dry with no rash
Neuro - AOx3, no motor deficits
Extremities - no clubbing, no cyanosis, no edema
Incision - clean, dry
Dressing - clean, dry, intact
Care Review
Data Reviewed
Discussed with: Hospitalist, Nursing and Family
CT Scan: Image Pers Reviewed
[2025-01-16 15:35] VITALS: BP 116/50
--- NOTE | 2025-01-16 15:39 | CON.ID ---
Consultation
-
Date/Time Consultation Requested: 01/16/2025 0954
Date/Time Consultation Performed: 01/16/2025 1540
Requesting Provider: Dr. Morrison
Performing Provider: Dr. Mckay
Reason for Consultation: UTI
Chief Complaint / Past History
History of Present Illness
Mitra Melendez is a 65-year-old female with a significant past medical history of nephrolithiasis being evaluated at the request of Dr. Morrison regarding ESBL E. coli. History is obtained chart review, along with patient interview.
The patient recently was admitted to [facility] on 01/11/2025. At that point in time she complained of right flank pain and right back pain over the prior week or so. CT imaging revealed distal ureteral stones, and the patient ultimately
underwent stone extraction on 01/12 with stent placement. She was thereafter discharged to home, but continued to have some urinary symptomatology. Additionally, a urine culture taken on 01/11 revealed the presence of ESBL E. coli. The patient was
called back for further management.
Currently she notes some ongoing suprapubic discomfort. She denies any dysuria. She notes ongoing hematuria. No fevers or chills. Continues to have right flank discomfort.
Past History
Additional Past Medical History:
Nephrolithiasis
GERD
HLD
Crohn's disease
Migraines
Hx meningioma
Additional Past Surgical History:
Cholecystectomy
Hysterectomy
Allergy History:
vaccine adjuvant system, AS01B liposomal (From Shingrix (PF)) Allergy (Verified 01/15/25 13:04)
Rash
varicella-zoster virus glycoprotein E, recombinant (From Shingrix (PF)) Allergy (Verified 01/15/25 13:04)
Rash
Medications Reviewed: Yes
Current Antibiotics:
Zosyn 4.5 g IV every 6 hours
Social History
Tobacco: Non-Smoker
Alcohol: Occasional
Drug: None
Personal:
Living: With Family
Employment: Retired
Family History
Family History: Not Pertinent
Review of Systems
Vital Signs
Temp Pulse Resp BP Pulse Ox
97.4 F 52 16 148/80 98
01/16/25 07:40 01/16/25 07:40 01/16/25 07:40 01/16/25 07:40 01/16/25 08:00
Physical Exam
Physical Exam
Constitutional: No Acute Distress, Comfortable and Non-toxic
Eyes: No Conjunctival Hemorrhage and Sclera Anicteric
Cardiovascular: S1/S2; Negative S3/S4
Pulmonary: Clear; Negative Wheezes, Rales or Rhonchi
Gastrointestinal: Soft, Non Tender and Non Distended
Genito-Urinary: CVA Tenderness (Right); Negative Martinez
Extremities: Negative Edema, Cyanosis or Erythema
Neurological: Awake and Alert
Psychological: Calm
Lab / Diagnostic Study Results
01/15/25 13:51
01/15/25 13:51
Abs Immat Gran (auto) 0.0 10^3/uL (0-0.05) 01/15/25 13:51
Absolute Neuts (auto) 5.6 10^3/uL (1.4-6.5) 01/15/25 13:51
Absolute Lymphs (auto) 2.8 10^3/uL (1.2-3.4) 01/15/25 13:51
Absolute Monos (auto) 0.7 10^3/uL (0.1-0.6) H 01/15/25 13:51
Absolute Basos (auto) 0.1 10^3/uL (0-0.2) 01/15/25 13:51
Immature Gran % 0.3 % (0-0.5) 01/15/25 13:51
Neutrophils % 60.0 % (42.2-75.2) 01/15/25 13:51
Lymphocytes % 29.6 % (20.5-51.1) 01/15/25 13:51
Monocytes % 7.9 % (1.7-9.3) 01/15/25 13:51
Eosinophils % 1.6 % (0-6) 01/15/25 13:51
Basophils % 0.6 % (0-2) 01/15/25 13:51
Ur Squamous Epith Cells /LPF (Few) 01/15/25 13:51
Microbiology Results
Micro:
01/15/25 13:51 Urine Culture - Preliminary
Urine Escherichia coli
Urine Culture Final 01/11/2025
CC: Greater than 100,000 CFU/ML Escherichia coli - ESBL
1. Escherichia coli - ESBL
M.I.C. RX
--------- ---
Amoxicillin/Potas. Clavulanate <=8/4 S
Ampicillin >16 R
Ampicillin/Sulbactam 16/8 I
Aztreonam >16 R
Cefazolin >16 R
Cefepime >16 R
Ceftazidime 8 I
Ceftriaxone >2 R
Ertapenem <=0.5 S
Ciprofloxacin 0.5 I
Gentamicin >8 R
Meropenem <=1 S
Nitrofurantoin-Urine Only <=32 S
Piperacillin/Tazobactam <=8 S
Tetracycline >8 R
Tobramycin 8 I
Trimethoprim/Sulfamethoxazole >2/38 R
Imaging:
01/09/2025 CT abdomen/pelvis without contrast: Obstructing distal right ureteral calculus with maximum dimension of 6 mm. Moderate dilation of the more proximal right ureter and pelvicalyceal system with right perinephric edema and enlargement of
the right kidney compared to the left. There also appears to be an additional 3 mm calculus within the distal right ureter, 1.5 cm inferior to the larger more proximal calculus. Bilateral nephroliths. Status post cholecystectomy with no evidence
for biliary ductal dilation. Mild fatty infiltration of the liver. Bony degenerative changes as described.
Assessment / Plan
Nephrolithiasis
Complicated urinary tract infection due to ESBL E. coli
Hematuria
Dysuria
GERD
HLD
Crohn's disease
Migraines
Hx meningioma
Recommendations:
Transition antibiotics to once daily ertapenem.
Patient reports a possible stent removal on Monday.
Would treat with a total of 14 days of IV antibiotics.
Home infusion sheet placed on paper chart.
[2025-01-16] MEDS: INVANZ 60 MG IV (17:26)
[2025-01-16] MEDS: ZOFRAN 4 MG IV (20:46)
[2025-01-16] MEDS: DESYREL 100 MG PO (21:26)
[2025-01-16] MEDS: FLOMAX 0.4 MG PO (21:26)
[2025-01-16 21:27] LABS: Hepatitis C Antibody Negative (Negative)
[2025-01-16 23:18] VITALS: BP 113/55
[2025-01-17 06:52] LABS: Hematocrit 43.3 % (37.0-47.0); Hemoglobin 14.6 g/dL (12.0-16.0); Mean Corp Hgb Conc. 33.7 g/dL (33.0-37.0); Mean Corpuscular Volume 91.0 fL (81.0-99.0); Nucleated Red Blood Cells % 0 %; Platelet Count 269 10^3/uL (130-400); Red Cell Dist. Width 13.6 % (11.5-14.5)
[2025-01-17 07:21] LABS: Blood Urea Nitrogen 13 mg/dl (7-17); Calcium 10.3 mg/dl (8.4-10.2); Carbon Dioxide 29 mmol/L (22-30); Chloride 105 mmol/L (98-107); Estimated Creatinine Clearance 52 ml/min; Glucose 97 mg/dl (70-99); Potassium 4.4 mmol/L (3.5-5.1); Sodium 140 mmol/L (135-145); eGFR > 60.00
[2025-01-17 07:59] VITALS: BP 141/57
[2025-01-17] MEDS: LAMICTAL 150 MG PO ×2 (08:02→20:12)
[2025-01-17] MEDS: INDERAL LA 80 MG PO (08:02)
[2025-01-17] MEDS: PROTONIX 40 MG PO (08:02)
--- NOTE | 2025-01-17 11:17 | W.PN.URO.CBU ---
Today's Communication / Plan
-
for op room sat NPO HS TONIGHT NO TEDS
Assessment / Plan
-
ESBL ITI IN PT WITH JJ STENT WILL TX ESBL THEN STENT IS READY FOR REMOVAL HAVING SPOKEN TO THE PREV ATTENDING UROLOGUST BWILL REMOVE STENT SAT PREOP DONE DCONSENTED
Diagnosis
-
Date of Service: January 17, 2025
-
Patient Diagnosis:
Post Op Day:
Patient Diagnosis:
UTI ESBL IN PT WTH LEFT JJ STNE X WEEK PLACED POST OP LASER STONE EXTRACTION
Post Op Day:
Subjective
-
feeling better
Objective
-
Vital Signs
Temp Pulse Resp BP Pulse Ox
98 F 59 16 141/57 96
01/17/25 07:59 01/17/25 07:59 01/17/25 07:59 01/17/25 07:59 01/17/25 07:59
Intake and Output
01/16/25 01/17/25 01/18/25
06:59 06:59 06:59
Intake Total 580 / 580 1030 / 1030
Output Total 250 / 250 400 / 1050 650 / 650
Balance 330 / 330 630 / -20 -650 / -650
Intake:
Oral fluids 480 / 480 840 / 840
IV piggybacks 100 / 100 190 / 190
zosyn 100 / 100
Output:
Urine, Voided 250 / 250 400 / 1050 650 / 650
Other:
Number of approximated MODERATE 8
amounts of urine
Laboratory Results
01/17/25 05:47
01/17/25 05:47
Review of Systems
-
: Urgency and Bleeding
Physical Exam
-
General - well developed, well nourished, no acute distress
Chest - clear bilaterally
Abdomen - soft, non-tender, positive bowel sounds, no CVAT, no incisional pain or distention
Genitalia - normal
Rectal - normal
Skin - warm & dry with no rash
Neuro - AOx3, no motor deficits
Extremities - no clubbing, no cyanosis, no edema
Incision - clean, dry
Dressing - clean, dry, intact
Care Review
Data Reviewed
Discussed with: Hospitalist
CT Scan: Image Pers Reviewed
--- NOTE | 2025-01-17 11:37 | W.PN.HOSP.TC ---
Today's Communication/Plan
-
IV antibiotics.
Assessment / Plan
Assessment / Plan
Physical exam:
General: Acutely ill
HEENT: Normocephalic, Atraumatic and Moist Mucous Membranes
Respiratory: Clear to Auscultation; Negative Wheezes, Rales or Rhonchi
Cardiac: Regular Rhythm and S1/S2
GI: Soft, mild suprapubic tender and Nondistended
Musculoskeletal: No Clubbing, No Cyanosis and No Edema
Neuro: Awake, Alert and Oriented, no neurological deficits
Psych: Calm
A/P:
ESBL UTI:
On IV ertapenem
ID consult appreciated
Discussed with family at bedside yesterday
Plan for long-term antibiotics
Recent ureteral stent for ureteral stone:
Urology consulted-discussed with urology today
Plan for stent removal due to current infection over the next 24 hours
Hematuria:
Likely related to current infection
Continue to monitor and quantify of hematuria and monitor hemoglobin closely
History of seizures:
Continue lamotrigine 150 mg twice a day
History of migraine headaches:
Continue propranolol 80 mg daily for prevention
History of angioma:
History of resection and radiation
DVT prophylaxis:
SCDs
CODE STATUS:
DNR
Time spent 35 minutes
Anticipated Discharge: > 48 hours
Subjective/Interval History
-
Date of Service: January 17, 2025
Patient feels better overall. Afebrile
Objective Data
-
Labs:
Laboratory Results
01/17/25
05:47
WBC 8.3
Hgb 14.6
Hct 43.3
Plt Count 269
Sodium 140
Potassium 4.4
Chloride 105
Carbon Dioxide 29
BUN 13
Creatinine 0.9
Glucose 97
Calcium 10.3 H
Vital Signs:
Vital Signs
Temp Pulse Resp BP Pulse Ox
98 F 59 16 141/57 96
01/17/25 07:59 01/17/25 07:59 01/17/25 07:59 01/17/25 07:59 01/17/25 07:59
I&O
01/16/25 01/17/25 01/18/25
06:59 06:59 06:59
Intake Total 580 / 580 1030 / 1030
Output Total 250 / 250 400 / 1050 650 / 650
Balance 330 / 330 630 / -20 -650 / -650
[2025-01-17] MEDS: PERCOCET 5/325 1 TABLET PO ×2 (12:32→20:47)
[2025-01-17 15:00] VITALS: BP 119/51
[2025-01-17] MEDS: INVANZ 60 MG IV (16:48)
[2025-01-17] MEDS: FLOMAX 0.4 MG PO (21:53)
[2025-01-17] MEDS: DESYREL 100 MG PO (21:55)
[2025-01-17 23:59] VITALS: BP 116/51
[2025-01-18] VITALS (9 sets, daily range): BP systolic 116–140; BP diastolic 51–79
[2025-01-18] MEDS: PROTONIX 40 MG PO (07:45)
[2025-01-18] MEDS: LAMICTAL 150 MG PO ×2 (07:45→20:03)
[2025-01-18] MEDS: INDERAL LA 80 MG PO (07:45)
--- NOTE | 2025-01-18 08:15 | W.PN.HOSP.TC ---
Today's Communication/Plan
-
IV antibiotic
Assessment / Plan
Assessment / Plan
Physical exam:
General: Acutely ill
HEENT: Normocephalic, Atraumatic and Moist Mucous Membranes
Respiratory: Clear to Auscultation; Negative Wheezes, Rales or Rhonchi
Cardiac: Regular Rhythm and S1/S2
GI: Soft, mild suprapubic tender and Nondistended
Musculoskeletal: No Clubbing, No Cyanosis and No Edema
Neuro: Awake, Alert and Oriented, no neurological deficits
Psych: Calm
A/P:
ESBL UTI:
On IV ertapenem
ID consult appreciated
Discussed with family at bedside yesterday
Plan for long-term antibiotics
Recent ureteral stent for ureteral stone:
Urology consulted-discussed with urology today
Plan for stent removal due to current infection today
Hematuria:
Likely related to current infection
Continue to monitor and quantify of hematuria and monitor hemoglobin closely
History of seizures:
Continue lamotrigine 150 mg twice a day
History of migraine headaches:
Continue propranolol 80 mg daily for prevention
History of angioma:
History of resection and radiation
DVT prophylaxis:
SCDs
CODE STATUS:
DNR
Time spent 35 minutes
Anticipated Discharge: 24 - 48 hours
Subjective/Interval History
-
Date of Service: January 18, 2025
Patient feels better overall. Afebrile
Objective Data
-
Labs:
Laboratory Results
01/18/25
07:15
WBC Pending
Hgb Pending
Hct Pending
Plt Count Pending
Sodium Pending
Potassium Pending
Chloride Pending
Carbon Dioxide Pending
BUN Pending
Creatinine Pending
Glucose Pending
Calcium Pending
Vital Signs:
Vital Signs
Temp Pulse Resp BP Pulse Ox
97.4 F 55 16 116/51 92
01/17/25 23:59 01/17/25 23:59 01/17/25 23:59 01/17/25 23:59 01/17/25 23:59
I&O
01/17/25 01/18/25 01/19/25
06:59 06:59 06:59
Intake Total 1030 / 1030 360 / 360
Output Total 400 / 1050 1325 / 1325
Balance 630 / -20 -965 / -965
[2025-01-18 08:26] LABS: Hematocrit 40.9 % (37.0-47.0); Hemoglobin 13.8 g/dL (12.0-16.0); Mean Corp Hgb Conc. 33.7 g/dL (33.0-37.0); Mean Corpuscular Volume 91.1 fL (81.0-99.0); Platelet Count 247 10^3/uL (130-400); Red Cell Dist. Width 13.6 % (11.5-14.5)
[2025-01-18 08:46] LABS: Blood Urea Nitrogen 9 mg/dl (7-17); Calcium 9.6 mg/dl (8.4-10.2); Carbon Dioxide 25 mmol/L (22-30); Chloride 106 mmol/L (98-107); Estimated Creatinine Clearance 58 ml/min; Glucose 107 mg/dl (70-99); Potassium 4.4 mmol/L (3.5-5.1); Sodium 139 mmol/L (135-145); eGFR > 60.00
--- NOTE | 2025-01-18 08:58 | W.SUR.POST ---
Surgical Immediate Post Op
Note
Pre Op Diagnosis: left uretrat stent with infection
Post Op Diagnosis: same
cysto stent removal
Primary Surgeon: gemini
Secondary Surgeons:
Anesthesia: iv sedation dr mccain
Estimated Blood Loss: 1
Fluids:
Drains/Shunts: 0
Specimens/Cultures: 0
Doppler/Duplex/Angio (Y/N):
Complications:0
Operative Findings:
stent intact removed
[2025-01-18] MEDS: PERCOCET 5/325 1 TABLET PO ×2 (12:44→21:05)
--- NOTE | 2025-01-18 13:29 | W.PN.ID1 ---
Date of Service
Date of Service: January 18, 2025
Today's Communication
Continue antibiotics.
Assessment / Plan
Nephrolithiasis
Complicated urinary tract infection due to ESBL E. coli
Hematuria
Dysuria
GERD
HLD
Crohn's disease
Migraines
Hx meningioma
Recommendations:
Continue ertapenem.
S/p stent removal today
Would treat with a total of 14 days of IV antibiotics.
Home infusion sheet placed on paper chart.
Chief Complaint
-: UTI
Subjective / Review of Systems
Patient seen and examined. Reports still with some hematuria.
Review of Systems: No Fever
Vital Signs / Physical Exam
Vital Signs
Vital Signs
Temp Pulse Resp BP Pulse Ox
97 F 57 14 136/67 96
01/18/25 09:25 01/18/25 09:21 01/18/25 09:21 01/18/25 09:21 01/18/25 09:00
Physical Exam
Constitutional: No Acute Distress, Comfortable and Non-toxic
Eyes: Sclera Anicteric
Pulmonary: Non Labored
Gastrointestinal: Non Distended
Neurological: Awake and Alert
Psychological: Calm
Objective Data
Lab Data
Lab Results
01/18/25 07:15
01/18/25 07:15
Estimated Creat Clear 58 ml/min 01/18/25 07:15
Most recent labs reviewed.
Micro Results:
01/15/25 13:51 Urine Culture - Final
Urine Escherichia coli - ESBL
Urine Culture Final 01/11/2025
CC: Greater than 100,000 CFU/ML Escherichia coli - ESBL
1. Escherichia coli - ESBL
M.I.C. RX
--------- ---
Amoxicillin/Potas. Clavulanate <=8/4 S
Ampicillin >16 R
Ampicillin/Sulbactam 16/8 I
Aztreonam >16 R
Cefazolin >16 R
Cefepime >16 R
Ceftazidime 8 I
Ceftriaxone >2 R
Ertapenem <=0.5 S
Ciprofloxacin 0.5 I
Gentamicin >8 R
Meropenem <=1 S
Nitrofurantoin-Urine Only <=32 S
Piperacillin/Tazobactam <=8 S
Tetracycline >8 R
Tobramycin 8 I
Trimethoprim/Sulfamethoxazole >2/38 R
Imaging:
01/09/2025 CT abdomen/pelvis without contrast: Obstructing distal right ureteral calculus with maximum dimension of 6 mm. Moderate dilation of the more proximal right ureter and pelvicalyceal system with right perinephric edema and enlargement of
the right kidney compared to the left. There also appears to be an additional 3 mm calculus within the distal right ureter, 1.5 cm inferior to the larger more proximal calculus. Bilateral nephroliths. Status post cholecystectomy with no evidence
for biliary ductal dilation. Mild fatty infiltration of the liver. Bony degenerative changes as described.
--- NOTE | 2025-01-18 16:31 | CM ---
catalogue and special products manager spoke with patient and referral sent to [facility] for home IV ABX.
Plan; Home infusion referral sent to [facility].
[2025-01-18] MEDS: INVANZ 60 MG IV (17:37)
[2025-01-18] MEDS: TYLENOL 650 MG PO (18:38)
--- NOTE | 2025-01-18 18:48 | VATNOTE ---
pt with picc order for abx x 14days. per md yue estrada with midline. per md huffman, place 01/19. nurse and patient notified
[2025-01-18] MEDS: FLOMAX 0.4 MG PO (21:05)
[2025-01-18] MEDS: DESYREL 100 MG PO (21:05)
[2025-01-19 07:04] LABS: Hematocrit 40.4 % (37.0-47.0); Hemoglobin 13.9 g/dL (12.0-16.0); Mean Corp Hgb Conc. 34.4 g/dL (33.0-37.0); Mean Corpuscular Volume 89.6 fL (81.0-99.0); Platelet Count 264 10^3/uL (130-400); Red Cell Dist. Width 13.3 % (11.5-14.5)
[2025-01-19 07:22] LABS: Blood Urea Nitrogen 13 mg/dl (7-17); Calcium 10.0 mg/dl (8.4-10.2); Carbon Dioxide 22 mmol/L (22-30); Chloride 107 mmol/L (98-107); Estimated Creatinine Clearance 66 ml/min; Glucose 132 mg/dl (70-99); Potassium 4.3 mmol/L (3.5-5.1); Sodium 137 mmol/L (135-145); eGFR > 60.00
[2025-01-19] MEDS: LAMICTAL 150 MG PO ×2 (07:39→21:23)
[2025-01-19] MEDS: PROTONIX 40 MG PO (07:39)
[2025-01-19] MEDS: INDERAL LA 80 MG PO (07:39)
[2025-01-19 08:30] VITALS: BP 188/60
--- NOTE | 2025-01-19 11:00 | W.PN.HOSP.TC ---
Today's Communication/Plan
-
IV antibiotics.
Assessment / Plan
Assessment / Plan
Physical exam:
General: Acutely ill
HEENT: Normocephalic, Atraumatic and Moist Mucous Membranes
Respiratory: Clear to Auscultation; Negative Wheezes, Rales or Rhonchi
Cardiac: Regular Rhythm and S1/S2
GI: Soft, no tender and Nondistended
Musculoskeletal: No Clubbing, No Cyanosis and No Edema
Neuro: Awake, Alert and Oriented, no neurological deficits
Psych: Calm
A/P:
ESBL UTI:
On IV ertapenem
ID consult appreciated
Discussed with family at bedside prior
Plan for midline today
Plan for long-term antibiotics and awaiting for case management for discharge disposition
Recent ureteral stent for ureteral stone:
Urology consult appreciated
Status post stent removal by urology
Hematuria:
Likely related to current infection and stent in place now removed
Improved
History of seizures:
Continue lamotrigine 150 mg twice a day
History of migraine headaches:
Continue propranolol 80 mg daily for prevention
History of angioma:
History of resection and radiation
DVT prophylaxis:
SCDs
CODE STATUS:
DNR
Time spent 35 minutes
Anticipated Discharge: Within 24 hours
Subjective/Interval History
-
Date of Service: January 19, 2025
Patient doing well overall. Denies hematuria today. Afebrile
Objective Data
-
Labs:
Laboratory Results
01/19/25
06:48
WBC 16.3 H
Hgb 13.9
Hct 40.4
Plt Count 264
Sodium 137
Potassium 4.3
Chloride 107
Carbon Dioxide 22
BUN 13
Creatinine 0.7
Glucose 132 H
Calcium 10.0
Vital Signs:
Vital Signs
Temp Pulse Resp BP Pulse Ox
98.1 F 67 14 188/60 96
01/19/25 08:30 01/19/25 08:30 01/19/25 08:30 01/19/25 08:30 01/19/25 08:30
I&O
01/18/25 01/19/25 01/20/25
06:59 06:59 06:59
Intake Total 360 / 360 580 / 580
Output Total 1325 / 1325 100 / 100
Balance -965 / -965 480 / 480
[2025-01-19 11:07] VITALS: BP 131/58
[2025-01-19] MEDS: FLORASTOR 250 MG PO ×2 (12:09→21:23)
--- NOTE | 2025-01-19 12:58 | W.PN.URO.CBU ---
Today's Communication / Plan
-
PER HOSPITALIST
Assessment / Plan
-
ESBL ITI IN PT WITH JJ STENT NOW REMOVED .ASX . ESBL TX PER HOSITALIST
Diagnosis
-
Date of Service: January 19, 2025
-
Patient Diagnosis:
Post Op Day:
Patient Diagnosis:
Post Op Day:
Patient Diagnosis:
UTI ESBL IN PT WTH LEFT JJ STNE X WEEK PLACED POST OP LASER STONE EXTRACTION
Post Op Day:
Subjective
-
FEELING BETTER
Objective
-
Vital Signs
Temp Pulse Resp BP Pulse Ox
98.1 F 61 14 131/58 96
01/19/25 08:30 01/19/25 11:07 01/19/25 08:30 01/19/25 11:07 01/19/25 08:30
Intake and Output
01/18/25 01/19/25 01/20/25
06:59 06:59 06:59
Intake Total 360 / 360 580 / 580
Output Total 1325 / 1325 100 / 100
Balance -965 / -965 480 / 480
Intake:
Oral fluids 360 / 360 480 / 480
IV fluids (Total) 100 / 100
normosol 100 / 100
Output:
Urine, Voided 1325 / 1325 100 / 100
Other:
Number of approximated MODERATE 1
amounts of urine
Laboratory Results
01/19/25 06:48
01/19/25 06:48
Review of Systems
-
: No Symptoms
Physical Exam
-
General - well developed, well nourished, no acute distress
Chest - clear bilaterally
Abdomen - soft, non-tender, positive bowel sounds, no CVAT, no incisional pain or distention
Genitalia - normal
Rectal - normal
Skin - warm & dry with no rash
Neuro - AOx3, no motor deficits
Extremities - no clubbing, no cyanosis, no edema
Incision - clean, dry
Dressing - clean, dry, intact
--- NOTE | 2025-01-19 13:41 | W.PN.ID1 ---
Date of Service
Date of Service: January 19, 2025
Today's Communication
Continue current course of ertapenem.
Assessment / Plan
Nephrolithiasis
Complicated urinary tract infection due to ESBL E. coli
Hematuria
Dysuria
GERD
HLD
Crohn's disease
Migraines
Hx meningioma
Recommendations:
Continue ertapenem.
S/p stent removal. Hematuria improved.
Would treat with a total of 14 days of IV antibiotics.
Home infusion sheet placed on paper chart.
Chief Complaint
-: UTI
Subjective / Review of Systems
Patient seen and examined. Reports feeling well. Denies hematuria.
Review of Systems: No Fever and No Chills
Vital Signs / Physical Exam
Vital Signs
Vital Signs
Temp Pulse Resp BP Pulse Ox
98.1 F 61 14 131/58 96
01/19/25 08:30 01/19/25 11:07 01/19/25 08:30 01/19/25 11:07 01/19/25 08:30
Physical Exam
Constitutional: No Acute Distress, Comfortable and Non-toxic
Eyes: Sclera Anicteric
Pulmonary: Non Labored
Gastrointestinal: Non Distended
Genito-Urinary: Negative Martinez
Skin: Negative Rash or Jaundice
Neurological: Awake and Alert
Psychological: Calm
Lines: PICC (Right upper extremity)
Objective Data
Lab Data
Lab Results
01/19/25 06:48
01/19/25 06:48
Estimated Creat Clear 66 ml/min 01/19/25 06:48
Most recent labs reviewed.
Micro Results:
01/15/25 13:51 Urine Culture - Final
Urine Escherichia coli - ESBL
Urine Culture Final 01/11/2025
CC: Greater than 100,000 CFU/ML Escherichia coli - ESBL
1. Escherichia coli - ESBL
M.I.C. RX
--------- ---
Amoxicillin/Potas. Clavulanate <=8/4 S
Ampicillin >16 R
Ampicillin/Sulbactam 16/8 I
Aztreonam >16 R
Cefazolin >16 R
Cefepime >16 R
Ceftazidime 8 I
Ceftriaxone >2 R
Ertapenem <=0.5 S
Ciprofloxacin 0.5 I
Gentamicin >8 R
Meropenem <=1 S
Nitrofurantoin-Urine Only <=32 S
Piperacillin/Tazobactam <=8 S
Tetracycline >8 R
Tobramycin 8 I
Trimethoprim/Sulfamethoxazole >2/38 R
Imaging:
01/09/2025 CT abdomen/pelvis without contrast: Obstructing distal right ureteral calculus with maximum dimension of 6 mm. Moderate dilation of the more proximal right ureter and pelvicalyceal system with right perinephric edema and enlargement of
the right kidney compared to the left. There also appears to be an additional 3 mm calculus within the distal right ureter, 1.5 cm inferior to the larger more proximal calculus. Bilateral nephroliths. Status post cholecystectomy with no evidence
for biliary ductal dilation. Mild fatty infiltration of the liver. Bony degenerative changes as described.
[2025-01-19 15:10] VITALS: BP 128/53
[2025-01-19] MEDS: INVANZ 60 MG IV (17:31)
[2025-01-19] MEDS: PERCOCET 5/325 1 TABLET PO (17:36)
[2025-01-19] MEDS: FLOMAX 0.4 MG PO (21:23)
[2025-01-19] MEDS: DESYREL 100 MG PO (21:23)
[2025-01-20 00:18] VITALS: BP 120/54
[2025-01-20 05:09] LABS: Hematocrit 39.5 % (37.0-47.0); Hemoglobin 13.2 g/dL (12.0-16.0); Mean Corp Hgb Conc. 33.4 g/dL (33.0-37.0); Mean Corpuscular Volume 90.8 fL (81.0-99.0); Nucleated Red Blood Cells % 0 %; Platelet Count 249 10^3/uL (130-400); Red Cell Dist. Width 13.9 % (11.5-14.5)
[2025-01-20 05:28] LABS: Blood Urea Nitrogen 18 mg/dl (7-17); Calcium 9.7 mg/dl (8.4-10.2); Carbon Dioxide 28 mmol/L (22-30); Chloride 109 mmol/L (98-107); Estimated Creatinine Clearance 52 ml/min; Glucose 98 mg/dl (70-99); Potassium 4.5 mmol/L (3.5-5.1); Sodium 142 mmol/L (135-145); eGFR > 60.00
[2025-01-20 07:15] VITALS: BP 138/58
[2025-01-20] MEDS: LAMICTAL 150 MG PO ×2 (09:54→20:10)
[2025-01-20] MEDS: INDERAL LA 80 MG PO (09:54)
[2025-01-20] MEDS: FLORASTOR 250 MG PO ×2 (09:55→20:10)
[2025-01-20] MEDS: PROTONIX 40 MG PO (09:55)
--- NOTE | 2025-01-20 10:54 | W.PN.URO.CBU ---
Today's Communication / Plan
-
ok to d/c
Assessment / Plan
-
ESBL ITI IN PT WITH JJ STENT NOW REMOVED .ASX . ESBL TX PER HOSITALIST
Diagnosis
-
Date of Service: January 20, 2025
-
Patient Diagnosis:
Post Op Day:
Patient Diagnosis:
Post Op Day:
Patient Diagnosis:
Post Op Day:
Patient Diagnosis:
UTI ESBL IN PT WTH LEFT JJ STNE X WEEK PLACED POST OP LASER STONE EXTRACTION
Post Op Day:
Subjective
-
ready for d/ on picc line
Objective
-
Vital Signs
Temp Pulse Resp BP Pulse Ox
97.6 F 59 16 138/58 96
01/20/25 07:15 01/20/25 07:15 01/20/25 07:15 01/20/25 07:15 01/20/25 07:15
Intake and Output
01/19/25 01/20/25 01/21/25
06:59 06:59 06:59
Intake Total 580 / 580 960 / 960
Output Total 100 / 100
Balance 480 / 480 960 / 960
Intake:
Oral fluids 480 / 480 960 / 960
IV fluids (Total) 100 / 100
normosol 100 / 100
Output:
Urine, Voided 100 / 100
Other:
Number of approximated MODERATE 1 3
amounts of urine
Laboratory Results
01/20/25 04:42
01/20/25 04:42
Review of Systems
-
: No Symptoms
Physical Exam
-
General - well developed, well nourished, no acute distress
Chest - clear bilaterally
Abdomen - soft, non-tender, positive bowel sounds, no CVAT, no incisional pain or distention
Genitalia - normal
Rectal - normal
Skin - warm & dry with no rash
Neuro - AOx3, no motor deficits
Extremities - no clubbing, no cyanosis, no edema
Incision - clean, dry
Dressing - clean, dry, intact
--- NOTE | 2025-01-20 11:49 | CM ---
CM reviewed chart, line information faxed to [facility]. CM spoke with Emmy ([facility]), patient will require authorization for medication. Patient seen bedside, aware need auth for medication and likely no discharge today. IMM reviewed,
provided with copy, placed in chart. Patients will come for teaching when discharged. CM will continue to follow for all discharge planning needs.
Plan; awaiting auth through [facility] for medication, home with IV antibiotics when approved
[2025-01-20 15:22] VITALS: BP 121/53
--- NOTE | 2025-01-20 16:47 | W.PN.HOSP.TC ---
Today's Communication/Plan
-
d/c tomorrow, awaiting home IV abx approval
Assessment / Plan
Assessment / Plan
ESBL UTI:
On IV ertapenem
ID consult appreciated, recommended total 14 days of IV antibiotic therapy
Discussed with family at bedside prior
midline in place.
Plan for long-term antibiotics and awaiting for case management for discharge disposition
Recent ureteral stent for ureteral stone:
Urology consult appreciated
Status post stent removal by urology
Hematuria: resolved
Likely related to current infection and stent in place now removed
Improved
History of seizures:
Continue lamotrigine 150 mg twice a day
History of migraine headaches:
Continue propranolol 80 mg daily for prevention
History of angioma:
History of resection and radiation
DVT prophylaxis:
SCDs
CODE STATUS:
DNR
Anticipated Discharge: Within 24 hours
Subjective/Interval History
-
Date of Service: January 20, 2025
no Reported new issues
Objective Data
-
Labs:
Laboratory Results
01/20/25
04:42
WBC 12.3 H
Hgb 13.2
Hct 39.5
Plt Count 249
Sodium 142
Potassium 4.5
Chloride 109 H
Carbon Dioxide 28
BUN 18 H
Creatinine 0.9
Glucose 98
Calcium 9.7
Vital Signs:
Vital Signs
Temp Pulse Resp BP Pulse Ox
97.7 F 58 16 121/53 95
01/20/25 15:22 01/20/25 15:22 01/20/25 15:22 01/20/25 15:22 01/20/25 15:22
I&O
01/19/25 01/20/25 01/21/25
06:59 06:59 06:59
Intake Total 580 / 580 960 / 960
Output Total 100 / 100
Balance 480 / 480 960 / 960
Review of Systems
-
Respiratory: Reports No Symptoms
Cardiac: Reports No Symptoms
Abdomen/GI: Reports No Symptoms
Physical Exam
-
General: No Apparent Distress and Comfortable
HEENT: Negative Oxygen
Respiratory: Clear to Auscultation
Cardiac: Regular Rhythm and S1/S2; Negative Murmur or Rub
GI: Soft, Nontender, Nondistended and Normal Bowel Sounds
Musculoskeletal: No Edema
Neuro: Awake, Alert, Oriented, No Motor Deficits and Nonfocal/Grossly Intact
Psych: Calm
[2025-01-20] MEDS: INVANZ 60 MG IV (16:58)
[2025-01-20] MEDS: PERCOCET 5/325 1 TABLET PO (20:10)
[2025-01-20] MEDS: DESYREL 100 MG PO (21:48)
[2025-01-20] MEDS: FLOMAX 0.4 MG PO (21:49)
[2025-01-20 23:09] VITALS: BP 103/44
[2025-01-21 07:48] VITALS: BP 111/59
--- NOTE | 2025-01-21 08:00 | PN.CDI ---
CDI
- -
CDI:
Physician Documentation Request
Admit Date: 01/15/25 15:13
Dear Doctor Fidel,
Patient admitted for UTI.
01/18 Op Report: 'Left ureteral stent with ESBL infection'
01/20 Hospitalist PN: 'ESBL UTI...Status post stent removal by urology'
Please clarify the relationship between these conditions:
Yes, UTI is related to/associated with/due to ureteral stent.
No, UTI is not related to/associated with/due to ureteral stent but it is due to ___. (Please specify)
Unable to determine
Use of terms such as suspected, likely, concern for, or probable (associated with a specific diagnosis that is being evaluated, monitored, or treated as if it exists) are acceptable and can be coded in the inpatient setting, when documented at the
time of discharge.
Thank you,
Radha Chester RN, BSN
CDI Specialist
Available via [facility] text
Please use your independent medical judgment in providing your response.
[2025-01-21] MEDS: PROTONIX 40 MG PO (08:39)
[2025-01-21] MEDS: LAMICTAL 150 MG PO ×2 (08:40→20:30)
[2025-01-21] MEDS: FLORASTOR 250 MG PO ×2 (08:40→20:30)
[2025-01-21] MEDS: INDERAL LA 80 MG PO (08:41)
--- NOTE | 2025-01-21 11:16 | W.PN.HOSP.TC ---
Today's Communication/Plan
-
anticipate d/c once [facility] auth received
Assessment / Plan
Assessment / Plan
pt is a 65 year old female
ESBL UTI:--OK for d/c when [facility] auth comes in
On IV ertapenem
ID consult appreciated, recommended total 14 days of IV antibiotic therapy
Discussed with family at bedside prior
midline in place.
Plan for long-term antibiotics and awaiting for case management for discharge disposition
Recent ureteral stent for ureteral stone:--noted--stent removed
Urology consult appreciated
Status post stent removal by urology
Hematuria: resolved
Likely related to current infection and stent in place now removed
Improved
History of seizures:
Continue lamotrigine 150 mg twice a day
History of migraine headaches:
Continue propranolol 80 mg daily for prevention
History of angioma:
History of resection and radiation
DVT prophylaxis:
SCDs
CODE STATUS:
DNR
Anticipated Discharge: Today
Subjective/Interval History
-
Date of Service: January 21, 2025
pt without c/o--waiting for d/c
Objective Data
-
Vital Signs:
max temp for 24 hours
01/20/25
23:09
Temp 98.1 F
Vital Signs
Temp Pulse Resp BP Pulse Ox
97.3 F 59 18 111/59 97
01/21/25 07:48 01/21/25 07:48 01/21/25 07:48 01/21/25 07:48 01/21/25 07:48
I&O
01/20/25 01/21/25 01/22/25
06:59 06:59 06:59
Intake Total 960 / 960 1350 / 1350
Balance 960 / 960 1350 / 1350
Review of Systems
-
All other systems: Reviewed and negative
Physical Exam
-
General: Well Developed, Well Nourished and No Apparent Distress
HEENT: Normocephalic and Atraumatic
Respiratory: Clear to Auscultation; Negative Wheezes or Rhonchi
Cardiac: Regular Rhythm and S1/S2; Negative Murmur
GI: Soft, Nontender, Nondistended and Normal Bowel Sounds
Musculoskeletal: No Clubbing, No Cyanosis and No Edema
Neuro: Awake and Alert
--- NOTE | 2025-01-21 13:02 | W.PN.ID1 ---
Date of Service
Date of Service: January 21, 2025
Today's Communication
Continue antibiotics.
Assessment / Plan
Nephrolithiasis
Complicated urinary tract infection due to ESBL E. coli
Hematuria
Dysuria
GERD
HLD
Crohn's disease
Migraines
Hx meningioma
Recommendations:
Continue ertapenem. Home infusion company awaiting for prior authorization from insurance company.
S/p stent removal. Hematuria improved.
Will treat with a total of 14 days of IV antibiotics.
Chief Complaint
-: UTI
Subjective / Review of Systems
Review of Systems: No Fever and No Chills
Vital Signs / Physical Exam
Vital Signs
Vital Signs
Temp Pulse Resp BP Pulse Ox
97.3 F 59 18 111/59 97
01/21/25 07:48 01/21/25 07:48 01/21/25 07:48 01/21/25 07:48 01/21/25 07:48
Physical Exam
Constitutional: No Acute Distress
Eyes: Sclera Anicteric
Pulmonary: Non Labored
Gastrointestinal: Non Distended
Genito-Urinary: Negative Martinez
Skin: Negative Rash or Jaundice
Neurological: Awake and Alert
Psychological: Calm
Lines: PICC (Right upper extremity)
Objective Data
Lab Data
Lab Results
01/20/25 04:42
01/20/25 04:42
Estimated Creat Clear 52 ml/min 01/20/25 04:42
Most recent labs reviewed.
Micro Results:
01/15/25 13:51 Urine Culture - Final
Urine Escherichia coli - ESBL
Urine Culture Final 01/11/2025
CC: Greater than 100,000 CFU/ML Escherichia coli - ESBL
1. Escherichia coli - ESBL
M.I.C. RX
--------- ---
Amoxicillin/Potas. Clavulanate <=8/4 S
Ampicillin >16 R
Ampicillin/Sulbactam 16/8 I
Aztreonam >16 R
Cefazolin >16 R
Cefepime >16 R
Ceftazidime 8 I
Ceftriaxone >2 R
Ertapenem <=0.5 S
Ciprofloxacin 0.5 I
Gentamicin >8 R
Meropenem <=1 S
Nitrofurantoin-Urine Only <=32 S
Piperacillin/Tazobactam <=8 S
Tetracycline >8 R
Tobramycin 8 I
Trimethoprim/Sulfamethoxazole >2/38 R
Imaging:
01/09/2025 CT abdomen/pelvis without contrast: Obstructing distal right ureteral calculus with maximum dimension of 6 mm. Moderate dilation of the more proximal right ureter and pelvicalyceal system with right perinephric edema and enlargement of
the right kidney compared to the left. There also appears to be an additional 3 mm calculus within the distal right ureter, 1.5 cm inferior to the larger more proximal calculus. Bilateral nephroliths. Status post cholecystectomy with no evidence
for biliary ductal dilation. Mild fatty infiltration of the liver. Bony degenerative changes as described.
[2025-01-21 15:43] VITALS: BP 168/66
--- NOTE | 2025-01-21 15:45 | CM ---
CM reviewed chart, [facility] bedside for teaching with patient/. Awaiting auth for [facility] for home infusion, can discharge once dose received and auth approved. Patient seen bedside, aware waiting for auth approval. CM will continue to
follow for all discharge planning needs.
Plan; home with , awaiting auth through [facility].
[facility]
[2025-01-21] MEDS: INVANZ 60 MG IV (18:31)
[2025-01-21] MEDS: PERCOCET 5/325 1 TABLET PO (18:37)
[2025-01-21] MEDS: FLOMAX 0.4 MG PO (21:26)
[2025-01-21] MEDS: DESYREL 100 MG PO (21:26)
[2025-01-21 23:00] VITALS: BP 121/59
[2025-01-22] MEDS: PERCOCET 5/325 1 TABLET PO (05:30)
[2025-01-22 07:40] VITALS: BP 118/58
[2025-01-22] MEDS: FLORASTOR 250 MG PO (08:11)
[2025-01-22] MEDS: PROTONIX 40 MG PO (08:11)
[2025-01-22] MEDS: INDERAL LA 80 MG PO (08:11)
[2025-01-22] MEDS: LAMICTAL 150 MG PO (08:11)
--- NOTE | 2025-01-22 09:55 | CM ---
Per [employer] [facility] [employer], prescription was denied. The insurance company is saying that meripenium would be approved and CM updated physician. New prescription is needed and CM will await new script. Pending new script being approved; per [facility] new
script will be approx 35$ per week. CM will update patient as soon as script is submitted to [facility].
[2025-01-22] MEDS: STERILE WATER FOR INJECTION 20 ML IV (11:20)
[2025-01-22] MEDS: MERREM 1000 MG IV (11:21)
--- NOTE | 2025-01-22 11:49 | CM ---
Patient completed IMM and updated script provided to patient physician. Patient spoke with [facility] and patient will have delivery of new antibiotic today. CM will continue to follow for discharge planning needs.
Plan; home with family and [facility] to deliver.
--- NOTE | 2025-01-22 12:02 | W.PN.ID1 ---
Date of Service
Date of Service: January 22, 2025
Today's Communication
Continue antibiotics. See below�
Assessment / Plan
Nephrolithiasis
Complicated urinary tract infection due to ESBL E. coli
Hematuria
Dysuria
GERD
HLD
Crohn's disease
Migraines
Hx meningioma
Recommendations:
Ertapenem was declined by patient's health insurance plan, with them instead requiring use of meropenem.
Patient has been transition to meropenem 1 g IV every 12 hours. Updated home infusion sheet has been placed on paper chart and given to CM.
Continue treatment with a total of 14 days of IV antibiotics.
Chief Complaint
-: UTI
Subjective / Review of Systems
Review of Systems: No Fever, No Chills and No Dysuria
Vital Signs / Physical Exam
Vital Signs
Vital Signs
Temp Pulse Resp BP Pulse Ox
99.0 F 60 18 118/58 97
01/22/25 07:40 01/22/25 07:40 01/22/25 07:40 01/22/25 07:40 01/22/25 07:40
Physical Exam
Constitutional: No Acute Distress
Eyes: Sclera Anicteric
Pulmonary: Non Labored
Gastrointestinal: Non Distended
Genito-Urinary: Negative Martinez
Skin: Negative Rash or Jaundice
Neurological: Awake and Alert
Psychological: Calm
Lines: PICC (Right upper extremity)
Objective Data
Lab Data
Lab Results
01/20/25 04:42
01/20/25 04:42
Estimated Creat Clear 52 ml/min 01/20/25 04:42
Most recent labs reviewed.
Micro Results:
01/15/25 13:51 Urine Culture - Final
Urine Escherichia coli - ESBL
Urine Culture Final 01/11/2025
CC: Greater than 100,000 CFU/ML Escherichia coli - ESBL
1. Escherichia coli - ESBL
M.I.C. RX
--------- ---
Amoxicillin/Potas. Clavulanate <=8/4 S
Ampicillin >16 R
Ampicillin/Sulbactam 16/8 I
Aztreonam >16 R
Cefazolin >16 R
Cefepime >16 R
Ceftazidime 8 I
Ceftriaxone >2 R
Ertapenem <=0.5 S
Ciprofloxacin 0.5 I
Gentamicin >8 R
Meropenem <=1 S
Nitrofurantoin-Urine Only <=32 S
Piperacillin/Tazobactam <=8 S
Tetracycline >8 R
Tobramycin 8 I
Trimethoprim/Sulfamethoxazole >2/38 R
Imaging:
01/09/2025 CT abdomen/pelvis without contrast: Obstructing distal right ureteral calculus with maximum dimension of 6 mm. Moderate dilation of the more proximal right ureter and pelvicalyceal system with right perinephric edema and enlargement of
the right kidney compared to the left. There also appears to be an additional 3 mm calculus within the distal right ureter, 1.5 cm inferior to the larger more proximal calculus. Bilateral nephroliths. Status post cholecystectomy with no evidence
for biliary ductal dilation. Mild fatty infiltration of the liver. Bony degenerative changes as described.
[2025-01-22 13:13] VITALS: BP 120/49
--- NOTE | 2025-01-22 16:50 | W.PN.HOSP.TC ---
Addendum entered and electronically signed by Gorge Parra MD 01/24/25 07:52:
Yes, UTI is associated with ureteral stent.
Original Note:
Today's Communication/Plan
-
d/c home
Assessment / Plan
Assessment / Plan
pt is a 65 year old female
ESBL UTI
On IV ertapenem
ID consult appreciated, recommended total 14 days of IV antibiotic therapy
Discussed with family at bedside prior
midline in place.
Plan for long-term antibiotics and awaiting for case management for discharge disposition
Recent ureteral stent for ureteral stone:--noted--stent removed
Urology consult appreciated
Status post stent removal by urology
Hematuria: resolved
Likely related to current infection and stent in place now removed
Improved
History of seizures:
Continue lamotrigine 150 mg twice a day
History of migraine headaches:
Continue propranolol 80 mg daily for prevention
History of angioma:
History of resection and radiation
DVT prophylaxis:
SCDs
CODE STATUS:
DNR
More than 30 minutes spent in discharge including
Final examination of the patient
Summarizing hospital stay
Instructions for continuing care to all relevant caregivers
Preparation of discharge records, prescriptions, and referral forms
Total time spent (in minutes): 39 mins
Anticipated Discharge: Today
Subjective/Interval History
-
Date of Service: January 22, 2025
No issues overnight
Objective Data
-
Vital Signs:
Vital Signs
Temp Pulse Resp BP Pulse Ox
97.5 F 60 18 120/49 97
01/22/25 13:13 01/22/25 13:13 01/22/25 13:13 01/22/25 13:13 01/22/25 07:40
I&O
01/21/25 01/22/25 01/23/25
06:59 06:59 06:59
Intake Total 1350 / 1350 770 / 770 320 / 320
Balance 1350 / 1350 770 / 770 320 / 320
Review of Systems
-
Respiratory: Reports No Symptoms
Cardiac: Reports No Symptoms
Abdomen/GI: Reports No Symptoms
Physical Exam
-
General: No Apparent Distress
HEENT: Negative Oxygen
Respiratory: Clear to Auscultation; Negative Wheezes or Rhonchi
Cardiac: Regular Rhythm and S1/S2; Negative Murmur
GI: Soft, Nontender and Nondistended
Neuro: Awake and Alert
--- NOTE | 2025-01-24 08:32 | W.DCSUMMARY ---
Discharge Summary
Discharge Data
Date of Admission: 01/15/25
Date of Discharge: 01/22/25
-
Pending Results: No
Hospital Course
Discharging Physician : Dr Gorge Parra
Disposition : To home
Primary care physician : Dr Sha Wheeler
Principal Discharge diagnosis :
Extended spectrum beta-lactamase producing Escherichia coli urinary tract infection
Hematuria
Recent cystoscopy/ureteral stent placement
Chronic Discharge diagnosis :
History of seizures
History of migraine
History of angioma
Gastroesophageal reflux disease
Hospital Course :
Patient is a 65-year-old female with above-mentioned past medical history came to ER with new onset of dysuria and hematuria. Patient underwent recent stone extraction and ureteral stent placement and was discharged on cephalexin. Patient had
urine culture collected as part of workup which later identified to be ESBL E. coli. Patient was requested to come back for further evaluation and IV antibiotic. Patient was started on carbapenem and infectious disease and urology were involved in
care. Patient underwent a cystoscopy and stent removal by urology. Patient hematuria resolved. At discharge ID recommended for patient to be maintained on 14 days of IV antibiotic therapy. Patient was discharged home after appropriate
arrangements were made.
Important imaging findings :
None
Procedure findings :
None
Discharge Plan
-
Patient Disposition: Home with Home Care
Discharge Diagnosis/Procedures: Spectrum beta-lactamase resistant urinary tract infection, recent ureteral stent status post removal for ureteral stone, history of seizures, history of migraine, history of angioma
Condition: Good
Diet: As tolerated and Regular
Activity: As tolerated
Driving Restrictions: As prior to admission
Bathing Restrictions: as per [facility] instructions
Other Services: VN
Referrals:
Sha Ching MD [Family Provider, Family Practice] - in less than 1 week
Prescriptions:
New
polyethylene glycol 3350 17 gram Powder In Packet
17 g PO DAILYPRN PRN (Reason: constipation) Qty: 0 0RF
tamsulosin 0.4 mg Capsule
0.4 mg PO HS Qty: 0 0RF
meropenem 1 gram Recon Soln
1,000 mg IV Q12H Qty: 10 0RF
Continued
trazodone 100 MG tablet
100 mg PO HS
ondansetron HCl 8 mg Tablet
8 mg PO Q8HPRN PRN (Reason: nausea)
therapeutic multivitamin Tablet
1 tab PO DAILY
oxycodone-acetaminophen 5-325 mg tablet
1 tab PO Q8HPRN PRN (Reason: severe pains)
propranolol 80 mg Capsule,Extended Release 24 Hr
80 mg PO DAILY
esomeprazole magnesium 40 mg Capsule,Delayed Release(Dr/Ec)
40 mg PO DAILY
Patient Comments:
01/15/2025, per pt., doctor told her to hold this med. while on Cefuroxime axetil.
tamsulosin [Flomax] 0.4 mg capsule
0.4 mg PO HS
Patient Comments:
01/15/2025, filled on 01/09/2025 for 20-day supply.
lamotrigine [Lamictal] 150 MG tablet
150 mg PO BID
Discontinued
cefuroxime axetil 500 mg tablet
500 mg PO BID
Patient Comments:
01/15/2025, filled on 01/09/2025 and instructed to take 1 tablet BID for 7 days; last dose is to be taken tomorrow (01/16/2025) per pt.
Discharge Orders:
Discharge Patient (As Directed); Ordered 01/21/25
Ordered By: Ronit Li
Discharge Date and Time
Discharge Date/Time: 01/22/25 13:38
Print Language: TAJIK
== END 2025-01-22 13:38 | disposition home health service (06) | DRG 699 ==
LOC: 4 WEST ACU 15:13
PROVIDERS: Hospitalist; ADMITTING PHYSICIAN Hospitalist; ATTENDING PHYSICIAN Hospitalist; CONSULT PHYSICIAN Internal Medicine Infectious Disease; CONSULT PHYSICIAN Specialist; EMERGENCY PHYSICIAN Student in an Organized Health Care Education/Training Program; FAMILY PHYSICIAN Family Medicine
PROC: 0TP98DZ Removal of Intraluminal Device from Ureter, Via Natural or Artificial Opening Endoscopic (ICD-10-PCS; 2025-01-18)
DX: T83.592A Infection and inflammatory reaction due to indwelling ureteral stent, initial encounter (principal); N39.0 Urinary tract infection, site not specified; Z66 Do not resuscitate; Y84.8 Other medical procedures as the cause of abnormal reaction of the patient, or of later complication, without mention of misadventure at the time of the procedure
CPT/HCPCS: 80048; 81003; 81015; 85025; 85027; 86803; 87077; 87086; 87186; 96374; 99285; J1335; J2185